=== PATIENT | female | born 1990 | race Caucasian/White ===

== ENCOUNTER 2020-08-05 19:52 | Emergency (ER) | payer SELFPAY ==
[2020-08-05 20:25] VITALS: BP 117/66; PULSE 106; RESP 16; TEMP 36.1; O2SAT 100
--- NOTE | 2020-08-05 20:50 | ED.ABDPAIN ---
HPI - Abdominal Pain General Chief Complaint: Abdominal Pain Stated Complaint: pain in abd Source: patient and RN notes reviewed Mode of arrival: ambulatory Limitations: no limitations History of Present Illness HPI narrative: patient is currently 6 weeks . She began having abdominal pain high up under her ribs approximately 10 days ago. Recently the pain has moved down into her lower abdomen. She is now having some vaginal bleeding. She delivered in [place]. She denies any chills she said she measured her temperature at 99.8? MD elicited complaint: abdominal pain Onset (ago): day(s) (10) Pain Consistency: intermittent Location: diffuse Severity: severe Quality: cramping and sharp Radiation: none Migration to: no migration Exacerbating factors: nothing Relieving factors: nothing Associated symptoms: nausea and diarrhea Related Data Patient : No Home Medications Medication Instructions Recorded Confirmed No Home Medications 08/05/20 08/05/20 Allergies Allergy/AdvReac Type Severity Reaction Status Date / Time No Known Allergies Allergy Unverified 02/29/16 14:14 Review of Systems Review of Systems: All systems reviewed & are unremarkable except as noted in HPI and below Constitutional: Constitutional: Denies chills and Denies fever(s) Eyes: Eyes: Reports no additional eye complaints ENT: Reports system reviewed and no additional complaints, except as documented Cardiovascular: Cardiovascular: Reports no additional cardiovascular complaints Respiratory: Respiratory: Reports no additional respiratory complaints Gastrointestinal: Gastrointestinal: Reports diarrhea and Reports nausea Genitourinary: Genitourinary: Reports abnormal vaginal bleeding Musculoskeletal: Musculoskeletal: Reports no additional musculoskeletal complaints Integumentary/Breasts: Skin/Breast: Reports system reviewed and no additional complaints, except as docu PMFSH Past Medical History Medical History (Updated 08/06/20 @ 00:00 by Christie Khalil) Migraine Surgical History Surgical History (Updated 08/05/20 @ 21:50 by Sotero Hinkle MD) No pertinent past surgical history Social History Social History (Updated 08/05/20 @ 21:50 by Sotero Hinkle MD) Smoking packs per day: 1 Smoking cigarettes per day: 20.0 Smoking status: Current every day smoker Tobacco type: cigarettes Alcohol intake: never Substance use: never Exam Const: General: healthy appearing and no acute distress Nutritional Appearance: well nourished and thin Orientation/consciousness: patient oriented x3 Other: female nurse in room during examination. HENMT: Head: normal to inspection Ears: external ears normal Face and sinus: normal facial exam Mouth: Yes moist mucous membranes Eyes: Conjunctivae: conjunctivae normal Pupils: Equal, round and reactive pupils present EOM: EOMs intact bilaterally Neck: Neck: normal visual inspection Resp: Effort & Inspection: normal respiratory effort Auscultation: clear to auscultation bilaterally Cardio: Rate: regular rate and tachycardic GI: Inspection: distended GI Palp: Yes Soft to palpation, Yes Tenderness to palpation present (GI) ( Left lower quadrant and suprapubic), Yes Guarding due to palpation present (GI), No Rigid due to palpation and No Rebound tenderness present Auscultation: normal bowel sounds : General: Yes no CVA tenderness Back/Spine/Pelvis: Cervical Spine: cervical ROM normal Thoracic/Lumbar Spine: thoraco-lumbar ROM normal Skin: General skin exam: normal color Rashes: no rashes Neuro: General: patient oriented x3, moves all extremities and no focal motor deficits Speech: normal speech Gait exam (Neuro): Normal gait present Extrem: General: normal to inspection and no clubbing, cyanosis or edema Psych: Appearance: grossly normal and well kempt Mental Status: mental status grossly normal Affect: normal affect Attitude: cooperative
[2020-08-05 21:44] LABS: Add Urine Microscopic? YES; Appearance Urine Clear (Clear); Basophils Absolute Auto 0.04 K/mm3 (0.00-0.10); Basophils Percent Auto 0.3 % (0.0-1.0); Bilirubin Urine 1+ (Negative); Blood Urine Negative (Negative); Color Urine Yellow (Yellow); Eosinophils Absolute Auto 0.13 K/mm3 (0.02-0.50); Glucose Urine UA Negative (Negative); Hematocrit 36.8 % (35.0-49.0); Hemoglobin 11.3 g/dL (12.0-15.0); Immature Granulocyte Absolute 0.08 K/mm3 (0.00-0.00); Immature Granulocyte Percent A 0.6 % (0.0-0.0); Ketones Urine Negative (Negative); Leukocyte Esterase Ur Negative LEU/UL (Negative); Lymphocytes Absolute Auto 1.82 K/mm3 (1.10-4.50); Lymphocytes Percent Auto 14.1 % (18.0-42.0); Mean Corpuscular HGB Conc 30.7 g/dL (32.0-36.0); Mean Corpuscular Hemoglobin 25.6 pg (27.0-31.0); Mean Corpuscular Volume 83.3 fL (78.0-102.0); Mean Platelet Volume 9.3 fl (9.2-11.8); Monocytes Absolute Auto 0.82 K/mm3 (0.10-0.90); Monocytes Percent Auto 6.4 % (2.0-11.0); Neutrophils Percent Auto 77.6 % (50.0-70.0); Nitrate Urine Negative (Negative); Platelet Count Result 448 K/mm3 (150-420); Protein Urine Trace (Negative); Red Blood Count 4.42 M/mm3 (4.20-5.40); Red Cell Distribution Width 16.7 % (11.6-14.4); Specific Grav Ur >= 1.030 (1.010-1.020); White Blood Count 12.9 K/mm3 (4.8-10.8); pH Urine 5.5 (5.0-8.0)
[2020-08-05 21:52] LABS: RBC Urine 0-2 /hpf (0-2)
[2020-08-05 21:53] LABS: Bacteria Urine 2+ /hpf; Calcium Oxalate Crystals Urine Present /hpf; Squamous Epithelial Cell Urine Few /hpf (Few)
[2020-08-05 22:03] LABS: Lactic Acid Reflex 0.6 mmol/L (0.4-2.0)
[2020-08-05 22:12] LABS: Alanine Aminotransferase 21 U/L (14-59); Albumin Level 2.6 g/dL (3.4-5.0); Alkaline Phosphatase 108 U/L (46-116); Anion Gap 9 mmol/L (8-16); Aspartate Amino Transferase < 10 U/L (15-37); Bilirubin,Total 0.1 mg/dL (0.00-1.00); Blood Urea Nitrogen 19 mg/dL (7-18); Calcium 8.5 mg/dL (8.5-10.1); Carbon Dioxide 29 mmol/L (21-32); Chloride 101 mmol/L (98-108); Estimated Glomerular Filt Rate > 60; Glucose 93 mg/dL (70-99); Lipase 41 U/L (73-393); Osmolality Calculated 290 mOsm/kg (285-295); Sodium 139 mmol/L (136-145); Total Protein 7.3 g/dL (6.4-8.2)
--- NOTE | 2020-08-05 22:31 | PC.NURSE ---
[facility] CALLED FOR POSSIBLE TRANSFER
[2020-08-05 23:20] VITALS: BP 114/72; PULSE 86; RESP 20; O2SAT 98
== END 2020-08-05 23:20 | disposition left against medical advice (07) ==
PROVIDERS: Emergency Provider Emergency Medicine
DX: R10.9 Unspecified abdominal pain (principal)
CPT/HCPCS: 36415; 80053; 81001; 83605; 83690; 85025; 99282; 99283

== ENCOUNTER 2020-08-06 14:09 | Emergency (ER) | payer MEDICAID, SELFPAY ==
--- NOTE | ~2020-08-06 | CT_ITS ---
EXAMINATION: CT abdomen pelvis w con DATE: 08/06/2020 19:04 INDICATION: Abdominal pain TECHNIQUE: Computed tomography (CT) of the abdomen and pelvis was performed with 100 cc Omnipaque 350 intravenous contrast. Automated exposure control and iterative reconstruction technique were employe d. Exam dose: 246.73 mGy-cm total exam DLP. COMPARISON: None. FINDINGS: There is mild dependent atelectasis at the lower lobes. Normal heart size. No pericardial or pleural effusion. The liver, spleen, gallbladder, bile ducts, pancreas, pancreatic duct, and adrenal glands are unremar kable. Indeterminate approximately 8 mm poorly marginated hypoenhancing lesion in the upper pole of the righ t kidney; consider MRI renal examination now or follow-up CT imaging in 6 months. No other renal spac e occupying mass lesion is detected. No urinary tract calculus or hydroureteronephrosis. The urinary bladder is unremarkable. Normal caliber of the abdominal aorta. Mild ascites, including mild fluid collection in the dependent pelvis, mild fluid collection in the r ight paracolic gutter and hepatorenal space. Normal appendix. Mild proximal small bowel dilatation and bowel wall thickening is noted. Findings ma y be consistent with nonspecific enteritis. No bowel obstruction or intraperitoneal free air is detec korina. Included skeletal structures are unremarkable. IMPRESSION: Nonspecific mild proximal small bowel dilatation and bowel wall thickening, suggesting e nteritis, possibly infectious or inflammatory. No abscess or free air. Normal appendix Mild ascites Indeterminate 8 mm poorly marginated hypoenhancing lesion in the upper pole right kidney; consider MR I renal examination now or follow-up CT imaging in 6 months. Reviewed, dictated and finalized at [facility]. Reviewed, dictated and finalized at [facility]. INTELLIGENCE TECHNICIAN IMPRESSION: Nonspecific mild proximal small bowel dilatation and bowel wall th ickening, suggesting enteritis, possibly infectious or inflammatory. No abscess or free air. Normal appendix Mild ascites Indeterminate 8 mm poorly marginated hypoenhancing lesion in the upper pole rig ht kidney; consider MRI renal examination now or follow-up CT imaging in 6 naveen hs.
--- NOTE | ~2020-08-06 | US_ITS ---
EXAMINATION: US pelvic complete DATE: 08/06/2020 16:57 INDICATION: 6 weeks abdominal pain. TECHNIQUE: Multiple transabdominal sonographic images of the pelvis were obtained. COMPARISON: None. FINDINGS: The uterus measures 7.9 x 4.8 x 6.9 cm. The endometrial complex measures 4 mm in thickness. The righ t ovary measures 3.6 x 2.4 x 3.4 cm with internal vascular flow on color Doppler. The left ovary is n ot visualized. There is a small amount of free fluid in the pelvis. Bladder is unremarkable. IMPRESSION: 1. Small amount of likely physiologic free fluid in the pelvis. Otherwise unremarkable pelvic ultraso und. Reviewed, dictated and finalized at [facility]. TRY BARN MANAGER IMPRESSION: 1. Small amount of likely physiologic free fluid in the pelvis. Otherwise unrem arkable pelvic ultrasound.
[2020-08-06 14:16] VITALS: BP 115/70; PULSE 96; RESP 18; TEMP 36.3; O2SAT 100
[2020-08-06 14:43] LABS: Alanine Aminotransferase 15 U/L (4-35); Albumin Level 3.8 g/dL (3.5-5.1); Alkaline Phosphatase 108 U/L (38-126); Anion Gap 8 mmol/L (8-16); Aspartate Amino Transferase 20 U/L (14-36); Bilirubin,Total 0.3 mg/dL (0.2-1.3); Blood Urea Nitrogen 17 mg/dL (7-17); Calcium 9.3 mg/dL (8.4-10.2); Carbon Dioxide 29 mmol/L (22-30); Chloride 102 mmol/L (98-107); Estimated CRCL calculation 87 ml/min; Estimated Glomerular Filt Rate > 60; Glucose 89 mg/dL (65-105); Lipase 23 U/L (23-300); Sodium 139 mmol/L (137-145)
[2020-08-06 14:44] LABS: Basophils Absolute Auto 0.1 K/mm3 (0.0-0.1); Basophils Percent Auto 0.5 % (0.2-1.2); Eosinophils Absolute Auto 0.2 K/mm3 (0-0.3); Eosinophils Percent Auto 1.5 % (0-4.4); Hematocrit 37.5 % (37.0-47.0); Hemoglobin 11.7 g/dL (12.0-15.0); Immature Granulocyte Absolute 0.09 K/mm3 (0.00-0.031); Immature Granulocyte Percent A 0.8 % (0-0.5); Lymphocytes Absolute Auto 2.16 K/mm3 (0.9-3.2); Lymphocytes Percent Auto 20.3 % (18.3-44.2); Mean Corpuscular HGB Conc 31.2 g/dl (32-36); Mean Corpuscular Hemoglobin 25.9 pg (26-34); Mean Platelet Volume 9.6 fl (7.4-10.4); Monocytes Absolute Auto 0.5 K/mm3 (0.1-0.6); Monocytes Percent Auto 4.5 % (2.6-8.5); Neutrophils Absolute Auto 7.7 K/mm3 (1.3-6.7); Neutrophils Percent Auto 72.4 % (45.5-73.1); Platelet Count Result 431 k/mm3 (150-375); Red Blood Count 4.52 M/mm3 (4.2-5.4); Red Cell Distribution Width 16.8 % (11.5-14.5); White Blood Count 10.6 K/mm3 (4.5-10.0)
--- NOTE | 2020-08-06 16:11 | ED.GENADULT ---
HPI - General Adult General Chief complaint: Abdominal Pain Stated complaint: bilateral rib pain, abd pain Time Seen by Provider: 08/06/20 16:05 Source: RN notes reviewed History of Present Illness HPI narrative: Patient presents to emergency department from home for abdominal pain. Patient states symptoms began 10 weeks ago. Pain is described as cramping and located in the bilateral lower abdomen as well as the right upper quadrant. Patient states pain does not radiate and is associated with nausea but denies any vomiting. Patient also states episodes of diarrhea today. Patient is 6 weeks post vaginal delivery. 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 She states she did have some vaginal bleeding that began approximately week ago and resolved yesterday denies any current vaginal bleeding or discharge states she did take Tylenol today for the pain with improvement denies any fevers or chills chest pain shortness of breath or any other symptoms Related Data Allergies Allergy/AdvReac Type Severity Reaction Status Date / Time No Known Allergies Allergy Verified 08/06/20 16:21 Review of Systems Review of Systems: Narrative: Gen.: Denies fevers or chills ENT: Denies congestion Respiratory: Denies shortness of breath or cough CV: Denies chest pain or palpitations GI: See HPI denies burning, urgency, frequency or hematuria Musculoskeletal: Denies back pain or muscle pain Neuro: Denies numbness, tingling, weakness or focal weakness Skin: Denies rash Except as documented, all other systems reviewed and negative [facility] Past Medical History Medical History Migraine Surgical History Surgical History (Updated 08/05/20 @ 21:50 by Sotero Hinkle MD) No pertinent past surgical history Social History Social History Smoking packs per day: 1 Smoking cigarettes per day: 20.0 Smoking status: Current every day smoker Tobacco type: cigarettes Alcohol intake: never Substance use: never Gender identity (if verbalized by the patient): Female Exam Narrative: Exam Narrative: APPEARANCE: No acute distress, nontoxic, resting in bed HEENT: Normocephalic, atraumatic, OMM RESPIRATORY: No respiratory distress, clear to auscultation bilaterally with no rhonchi wheezing or rales CARDIOVASCULAR: RRR s murmur ABDOMINAL: Soft, nondistended, turned palpation right lower quadrant left lower quadrant with mild tenderness in right upper quadrant, no tenderness left upper quadrant, no rebound or guarding MUSCULOSKELETAl: Moves all extremities. No clubbing, cyanosis or edema. NEURO: Awake and alert. Following commands, speech normal, no focal deficits SKIN:: Warm, dry. Normal Color PSYCHIATRIC: Normal affect/mood Course Course Emergency Course: Called discussed with Dr. Shanks presentation work-up. This time request patient started on Flagyl, follow-up as an outpatient Discussed with Dr. Estrella for [employer] presentation work-up agrees plan for discharge follow-up as an outpatient Patient states that they are feeling much better at this time. States abdominal pain has resolved. Repeat abdominal exam shows the patient's abdomen to be soft and nontender. Discussed with patient results of workup and diagnosis. Discussed need for follow-up with primary care physician, reasons to return to the emergency department in proper use of medication. Patient understands and agrees to current treatment plan Vital Signs Vital signs: Vital Signs Temperature 97.3 F L 08/06/20 14:16 Pulse Rate 96 08/06/20 14:16 Respiratory Rate 18 08/06/20 14:16 Blood Pressure 115/70 08/06/20 14:16 Pulse Oximetry 100 08/06/20 14:16 Temperature 97.3 F L 08/06/20 14:16 Pulse Rate 80 08/06/20 19:31 Respiratory Rate 20 08/06/20 19:31 Blood Pressure 104/58 L 08/06/20 19:31 Pulse Oximetry 100
[2020-08-06] MEDS: SODIUM CHLORIDE 0.9% IV 1,000 ML 999 ML IV CONT (18:00)
[2020-08-06] MEDS: KETOROLAC 30 MG/ML VIAL (*BKC) IV PUSH (18:01)
--- NOTE | 2020-08-06 18:52 | PC.NURSE ---
Pt in CT.
--- NOTE | 2020-08-06 19:15 | PC.NURSE ---
Pt asked multiple times to provide urine sample. Pt states she is unable to void at this time.
[2020-08-06 19:31] VITALS: BP 104/58; PULSE 80; RESP 20; O2SAT 100
[2020-08-06 19:52] LABS: Add Urine Microscopic? YES; Appearance Urine Clear (Clear); Bilirubin Urine Negative (Negative); Blood Urine Negative (Negative); Color Urine Yellow (Yellow); Glucose Urine UA Negative (Negative); Ketones Urine Negative (Negative); Leukocyte Esterase Ur Trace LEU/UL (NEGATIVE); Mucus Urine Heavy /lpf; Nitrate Urine Negative (Negative); Protein Urine 1+ mg/dL (Negative); Squamous Epithelial Cell Urine Many /hpf (Few); Urobilinogen Urine Negative mg/dL (<2.0); WBC Urine 16-20 /hpf (0-3)
[2020-08-06 19:55] LABS: Specific Grav Ur > 1.060 (1.001-1.035)
[2020-08-06 20:16] VITALS: BP 103/57; PULSE 87; RESP 16; O2SAT 100
[2020-08-06] MEDS: metroNIDAZOLE 250 MG TABLET 500 MG PO (20:16)
== END 2020-08-06 20:18 | disposition home or self-care (01) ==
PROVIDERS: Emergency Medicine; Emergency Provider Emergency Medicine; PCP Family Medicine
DX: K52.9 Noninfective gastroenteritis and colitis, unspecified (principal); N39.0 Urinary tract infection, site not specified; F17.210 Nicotine dependence, cigarettes, uncomplicated
CPT/HCPCS: 36415; 74177; 76856; 80053; 81001; 81025; 83690; 85025; 96361; 96374; 99284; A9270; J1885; J7030; Q9967

== ENCOUNTER 2021-01-07 12:22 | Observation (INO) | payer OTHER, SELFPAY ==
[2021-01-07] VITALS (9 sets, daily range): BP systolic 104–147; BP diastolic 66–89; PULSE 105–116; RESP 20–37; TEMP 36.6–37.5; O2SAT 96–100; BMI 24.5
--- NOTE | 2021-01-07 12:33 | ED.OVERDOSE ---
HPI - Overdose General Chief Complaint: Overdose Stated Complaint: ambulance Time Seen by Provider: 01/07/21 12:33 Source: patient Mode of arrival: EMS Limitations: no limitations History of Present Illness HPI Narrative: 30-year-old woman brought in today by EMS after she states she ingested approximately 3 g of methamphetamine at 11:30 a.m. today. She was stopped by the police prompting her to take medication. She states she last used methamphetamine yesterday. She complains of feeling shaky, having double vision, and feeling short of breath at present. she denies any other drug use, alcohol use except for her prescription medications which she cannot remember at this time. complaint: intentional overdose Onset (ago): hour(s) (1) Time: 11:30 Timing confirmed by: other (police) Intent: other Associated symptoms: shortness of breath Treatments Prior to Arrival: none Related Data Home Medications Medication Instructions Recorded Confirmed carisoprodol [Soma] 250 mg PO TID PRN 01/07/21 01/07/21 cyclobenzaprine [Flexeril] 10 mg PO TID PRN 01/07/21 01/07/21 sumatriptan succinate [Imitrex] 25 mg PO ONCE 01/07/21 01/07/21 Allergies Allergy/AdvReac Type Severity Reaction Status Date / Time No Known Allergies Allergy Verified 08/06/20 16:21 Review of Systems Review of Systems: All systems reviewed & are unremarkable except as noted in HPI and below Constitutional: Constitutional: Denies chills and Denies fever(s) Eyes: Eyes: Reports as per HPI, Reports change in vision and Denies photophobia ENT: Denies dysphagia, Denies nasal congestion and Denies sore throat Cardiovascular: Cardiovascular: Denies chest pain and Denies radiating jaw, neck or arm pain Respiratory: Respiratory: Reports as per HPI, Denies cough and Reports dyspnea Gastrointestinal: Gastrointestinal: Denies abdominal pain, Denies diarrhea, Denies nausea and Denies vomiting Genitourinary: Genitourinary: Denies hematuria, Denies nocturia and Denies dysuria Musculoskeletal: Musculoskeletal: Denies arthralgias and Denies joint swelling Integumentary/Breasts: Skin/Breast: Denies pruritus, Denies erythema and Denies rash Neurologic: Denies focal weakness, Denies numbness and Denies weakness PMFSH Past Medical History Medical History Migraine Surgical History Surgical History No pertinent past surgical history Social History Social History Smoking packs per day: 1 Smoking cigarettes per day: 20.0 Smoking status: Current every day smoker Tobacco type: cigarettes Alcohol intake: never Substance use: never Gender identity (if verbalized by the patient): Female Exam Const: General: healthy appearing and alert Limitations: behavioral limitations ( reticent, whispering) Other: Mildly anxious HENMT: Head: normal to inspection Ears: external ears normal and TM's normal bilaterally General nose exam: Normal nares present Face and sinus: normal facial exam Mouth: Yes moist mucous membranes Throat: posterior oropharynx normal Eyes: Conjunctivae: conjunctivae normal EOM: EOMs intact bilaterally Neck: Neck: normal visual inspection Resp: Effort & Inspection: normal respiratory effort and not labored Auscultation: clear to auscultation bilaterally, no rales, no rhonchi and no wheezes Cardio: Rate: tachycardic Rhythm: regular rhythm Heart sounds: no murmurs GI: GI Palp: Yes Soft to palpation and No Tenderness to palpation present (GI) Skin: General skin exam: normal color, no jaundice and no pallor Rashes: no rashes Neuro: General: patient oriented x3, moves all extremities, no focal motor deficits and CN's II-XI intact bilaterally Speech: normal speech Gait exam (Neuro): Normal gait present Motor exam (neuro): 5/5 motor strength present throughout Extrem:
--- NOTE | 2021-01-07 12:40 | PC.NURSE ---
POISON CONTROL CALLED FOR ADVICE - WATCH FOR SEIZURES, PSYCHOSIS, AGITATION, AND CARDIAC ARRHYTHMIA'S. GIVE BENZODIAZEPINES PRN. WATCH FOR SPIKE IN TEMPERATURE - SPOKE WITH HARSHIL
[2021-01-07 12:58] LABS: Basophils Absolute Auto 0.07 K/mm3 (0.00-0.10); Basophils Percent Auto 0.8 % (0.0-1.0); Eosinophils Absolute Auto 0.04 K/mm3 (0.02-0.50); Eosinophils Percent Auto 0.5 % (1.0-6.0); Hematocrit 36.4 % (35.0-49.0); Hemoglobin 11.9 g/dL (12.0-15.0); Immature Granulocyte Absolute 0.03 K/mm3 (0.00-0.00); Immature Granulocyte Percent A 0.4 % (0.0-0.0); Lymphocytes Absolute Auto 2.39 K/mm3 (1.10-4.50); Lymphocytes Percent Auto 28.2 % (18.0-42.0); Mean Corpuscular HGB Conc 32.7 g/dL (32.0-36.0); Mean Corpuscular Hemoglobin 27.3 pg (27.0-31.0); Mean Corpuscular Volume 83.5 fL (78.0-102.0); Mean Platelet Volume 10.1 fl (9.2-11.8); Monocytes Absolute Auto 0.54 K/mm3 (0.10-0.90); Monocytes Percent Auto 6.4 % (2.0-11.0); Neutrophils Absolute Auto 5.4 K/mm3 (1.7-7.2); Neutrophils Percent Auto 63.7 % (50.0-70.0); Platelet Count Result 315 K/mm3 (150-420); Red Blood Count 4.36 M/mm3 (4.20-5.40); Red Cell Distribution Width 14.1 % (11.6-14.4); White Blood Count 8.5 K/mm3 (4.8-10.8)
--- NOTE | 2021-01-07 13:00 | PC.NURSE ---
[facility] STATES THIS PATIENT IS RELEASED FROM THEIR CUSTODY - PT RESPONDS TO THEIR NEWS BY SAYING SHE KNOWS THAT SHE CAN LEAVE AND GO HOME. PT UPDATED TO THE FACT THAT IF SHE LEAVES WITH IV IN HER ARM, THE POLICE WILL BE CALLED.
--- NOTE | 2021-01-07 13:04 | ECG_ITS ---
Measurements Intervals [place] Rate: 119 P: 72 TN: 162 QRS: 70 QRSD: 97 T: 65 QT: 303 QTc: 427 Interpretive Statements SINUS TACHYCARDIA BASELINE ARTIFACT- I, II, III, AVR, AVL, AVF, V1-V6 ABNORMAL ECG Electronically Signed On 01-07-2021 13:35:35 CDT by Jason Palma D.O.
[2021-01-07] MEDS: SODIUM CHLORIDE 0.9% IV 1,000 ML 999 ML IV CONT ×2 (13:07→13:52)
[2021-01-07 13:12] LABS: Alanine Aminotransferase 20 U/L (14-59); Alkaline Phosphatase 70 U/L (46-116); Anion Gap 9 mmol/L (8-16); Aspartate Amino Transferase 11 U/L (15-37); Bilirubin,Total 0.4 mg/dL (0.00-1.00); Blood Urea Nitrogen 18 mg/dL (7-18); Calcium 8.9 mg/dL (8.5-10.1); Carbon Dioxide 25 mmol/L (21-32); Chloride 103 mmol/L (98-108); Creatine Kinase 71 U/L (26-192); Estimated Glomerular Filt Rate > 60; Glucose 108 mg/dL (70-99); Magnesium 1.9 mg/dL (1.8-2.4); Osmolality Calculated 286 mOsm/kg (285-295); Partial Thromboplastin Time 21.6 SEC (23.90-30.70); Potassium 3.7 mmol/L (3.5-5.1); Prothrombin Time 10.9 Seconds (9.50-12.10); Salicylate 2.5 mg/dL (2.8-20.0); Sodium 137 mmol/L (136-145); Total Protein 7.8 g/dL (6.4-8.2)
[2021-01-07 13:14] LABS: Acetaminophen < 2 ug/mL (10-30); Ethanol < 3 mg/dL (0-6)
[2021-01-07 13:18] LABS: Lactic Acid Reflex 1.1 mmol/L (0.4-2.0)
[2021-01-07] MEDS: DEXTROSE 5%/0.9% SOD CHL 1,000 ML 150 ML (14:45)
[2021-01-07 14:58] LABS: Glucose Point of Care 80 (65-105)
[2021-01-07 14:58] LABS: Glucose Point of Care 64 (65-105)
[2021-01-07 15:40] LABS: Add Urine Microscopic? YES; Appearance Urine Clear (Clear); Bilirubin Urine Negative (Negative); Blood Urine Negative (Negative); Color Urine Yellow (Yellow); Glucose Urine UA Negative (Negative); Ketones Urine Negative (Negative); Leukocyte Esterase Ur Trace LEU/UL (Negative); Nitrate Urine Negative (Negative); Protein Urine Negative (Negative); Specific Grav Ur >= 1.030 (1.010-1.020); Urobilinogen Urine 0.2 mg/dL (0.2-1.0)
--- NOTE | 2021-01-07 15:43 | PC.NURSE ---
PATIENT FINALLY AGREED TO PROVIDE URINE SAMPLE. PT IS ASSISTED UP. PT STATES THAT SHE FEELS BAD BUT NOT BAD ENOUGH TO BE ADMITTED OR TRANSFERRED. PT HAS FLUSHED SKIN AND IS ILL APPEARING COMPARED TO FIRST ARRIVAL.
[2021-01-07 15:46] LABS: Bacteria Urine Trace /hpf; Mucus Urine Few /lpf; RBC Urine 0-2 /hpf (0-2); Squamous Epithelial Cell Urine Few /hpf (Few)
[2021-01-07 15:47] LABS: Pregnancy On Board Control Positive; Urine Pregnancy Test Negative
[2021-01-07 15:49] LABS: Amphetamine Screen Urine Positive (Negative); Barbiturate Screen Urine Negative (Negative); Benzodiazepines Screen Urine Positive (Negative); Cannabinoid Screen Urine Negative (Negative); Cocaine Screen Urine Negative (Negative); Methadone Screen Urine Negative (Negative); Opiate Screen Urine Negative (Negative); Phencyclidine Screen Urine Negative (Negative)
[2021-01-07] MEDS: LORazepam INJ (*CRX) 2 MG/ML VIAL 0.5 MG IV PUSH (16:22)
--- NOTE | 2021-01-07 16:55 | PC.NURSE ---
STILL AWAITING CALL BACK FROM [facility] - FIRST CALL PLACED AT 1605 TO GANESH
--- NOTE | 2021-01-07 17:02 | PC.NURSE ---
PT REPORTS FEELING BETTER, RESPIRATIONS DOWN FROM PREVIOUS
--- NOTE | 2021-01-07 17:15 | PC.NURSE ---
SECOND CALL PLACED TO [facility]
--- NOTE | 2021-01-07 17:36 | PC.NURSE ---
[facility] CALLS BACK AND PATIENT TO BE ADMITTED HERE FOR OBSERVATION
[2021-01-07 18:31] LABS: Alanine Aminotransferase 21 U/L (14-59); Albumin Level 3.9 g/dL (3.4-5.0); Alkaline Phosphatase 73 U/L (46-116); Anion Gap 8 mmol/L (8-16); Aspartate Amino Transferase 12 U/L (15-37); Bilirubin,Total 0.5 mg/dL (0.00-1.00); Blood Urea Nitrogen 14 mg/dL (7-18); Calcium 8.5 mg/dL (8.5-10.1); Carbon Dioxide 25 mmol/L (21-32); Chloride 105 mmol/L (98-108); Estimated CRCL calculation 83 ml/min; Estimated Glomerular Filt Rate > 60; Glucose 100 mg/dL (70-99); Osmolality Calculated 286 mOsm/kg (285-295); Potassium 4.3 mmol/L (3.5-5.1); Sodium 138 mmol/L (136-145); Total Protein 7.7 g/dL (6.4-8.2); Troponin I < 4.0 ng/L (0.00-60.4)
[2021-01-07 18:34] LABS: Glucose Point of Care 97 (65-105)
--- NOTE | 2021-01-07 20:39 | PC.NURSE ---
Blood glucose checked and 91. A/O x3. Slight tremors noted and reaching for items in the air. Responsive to touch and voice. Continues with clear liquids. Monitoring.
[2021-01-07 20:40] LABS: Glucose Point of Care 91 (65-105)
--- NOTE | 2021-01-07 22:03 | PC.NURSE ---
Poison control from [place] called to follow up with patients condition. Stable at this time. Stated will call and speak with day nurse in the morning for condition update.
[2021-01-07 22:09] LABS: Glucose Point of Care 107 (65-105)
[2021-01-07 23:53] LABS: Glucose Point of Care 117 (65-105)
[2021-01-08] VITALS: BP 141/97; PULSE 90; RESP 18; TEMP 36.9; O2SAT 100
[2021-01-08 02:25] LABS: Glucose Point of Care 116 (65-105)
[2021-01-08] MEDS: DEXTROSE 5%/0.9% SOD CHL 1,000 ML 150 ML IV CONT (02:25)
[2021-01-08 02:31] LABS: Creatine Kinase 346 U/L (26-192); Troponin I 4.9 ng/L (0.00-60.4)
[2021-01-08 02:33] LABS: Thyroid Stimulating Hormone Reflex 1.46 u/IU/mL (0.36-3.74)
[2021-01-08 02:55] LABS: Lactic Acid Reflex 0.7 mmol/L (0.4-2.0)
[2021-01-08 02:56] LABS: Anion Gap 9 mmol/L (8-16); Blood Urea Nitrogen 8 mg/dL (7-18); Carbon Dioxide 23 mmol/L (21-32); Chloride 106 mmol/L (98-108); Estimated CRCL calculation 96 ml/min; Estimated Glomerular Filt Rate > 60; Glucose 118 mg/dL (70-99); Osmolality Calculated 285 mOsm/kg (285-295); Potassium 3.5 mmol/L (3.5-5.1); Sodium 138 mmol/L (136-145)
[2021-01-08 02:57] LABS: Alanine Aminotransferase 18 U/L (14-59); Albumin Level 3.2 g/dL (3.4-5.0); Alkaline Phosphatase 59 U/L (46-116); Aspartate Amino Transferase 16 U/L (15-37); Bilirubin,Total 0.5 mg/dL (0.00-1.00); Calcium 8.2 mg/dL (8.5-10.1); Total Protein 6.3 g/dL (6.4-8.2)
[2021-01-08 04:00] VITALS: BP 127/78; PULSE 75; RESP 18; TEMP 36.9; O2SAT 92
[2021-01-08 04:22] LABS: Glucose Point of Care 115 (65-105)
--- NOTE | 2021-01-08 04:41 | PC.NURSE ---
Continue to monitor patient. No further tremors noted. Resting at this time.
[2021-01-08 05:55] LABS: Basophils Absolute Auto 0.04 K/mm3 (0.00-0.10); Basophils Percent Auto 0.4 % (0.0-1.0); Eosinophils Absolute Auto 0.04 K/mm3 (0.02-0.50); Eosinophils Percent Auto 0.4 % (1.0-6.0); Hemoglobin 10.7 g/dL (12.0-15.0); Immature Granulocyte Absolute 0.03 K/mm3 (0.00-0.00); Immature Granulocyte Percent A 0.3 % (0.0-0.0); Lymphocytes Absolute Auto 2.24 K/mm3 (1.10-4.50); Lymphocytes Percent Auto 22.9 % (18.0-42.0); Mean Corpuscular HGB Conc 32.4 g/dL (32.0-36.0); Mean Corpuscular Hemoglobin 27.6 pg (27.0-31.0); Mean Corpuscular Volume 85.1 fL (78.0-102.0); Mean Platelet Volume 10.1 fl (9.2-11.8); Monocytes Absolute Auto 0.78 K/mm3 (0.10-0.90); Neutrophils Absolute Auto 6.7 K/mm3 (1.7-7.2); Platelet Count Result 279 K/mm3 (150-420); Red Blood Count 3.88 M/mm3 (4.20-5.40); Red Cell Distribution Width 14.5 % (11.6-14.4); White Blood Count 9.8 K/mm3 (4.8-10.8)
[2021-01-08 06:15] LABS: Anion Gap 8 mmol/L (8-16); Carbon Dioxide 25 mmol/L (21-32); Chloride 106 mmol/L (98-108); Potassium 3.5 mmol/L (3.5-5.1); Sodium 139 mmol/L (136-145)
[2021-01-08 06:16] LABS: Alanine Aminotransferase 19 U/L (14-59); Albumin Level 3.2 g/dL (3.4-5.0); Alkaline Phosphatase 62 U/L (46-116); Aspartate Amino Transferase 17 U/L (15-37); Bilirubin,Total 0.6 mg/dL (0.00-1.00); Blood Urea Nitrogen 7 mg/dL (7-18); Calcium 8.1 mg/dL (8.5-10.1); Estimated CRCL calculation 89 ml/min; Estimated Glomerular Filt Rate > 60; Glucose 118 mg/dL (70-99); Osmolality Calculated 287 mOsm/kg (285-295); Total Protein 6.4 g/dL (6.4-8.2)
[2021-01-08 06:17] LABS: Creatine Kinase 314 U/L (26-192)
--- NOTE | 2021-01-08 06:20 | PC.NURSE ---
Resting well at this time. No side effects noted. A/O x4. Continues with IV fluids and monitoring blood glucose.
[2021-01-08 06:24] LABS: Lactic Acid Reflex 0.8 mmol/L (0.4-2.0)
[2021-01-08 06:28] LABS: Troponin I 5.7 ng/L (0.00-60.4)
[2021-01-08 06:30] LABS: Glucose Point of Care 122 (65-105)
[2021-01-08 07:39] LABS: Glucose Point of Care 125 (65-105)
[2021-01-08 07:40] VITALS: BP 119/67; PULSE 83; RESP 16; TEMP 37.1; O2SAT 100
[2021-01-08 08:00] VITALS: PULSE 75
--- NOTE | 2021-01-08 09:08 | PM.SD2 ---
Same Day Admit/Disch: HPI History of Present Illness Chief complaint: methamphetamine overdose Narrative: Mee Townsend is a 30 year old female who was admitted under observation for self admitting she swallowed about 3 grams of Methamphetamine after being pulled over by police during a traffic stop. Pt asked how long she had been in the hospital stating she though she has been here for about 3 days. I informed her she was admitted last night. This morning Pt denies any CP, SOB, increased WOB, ARIAS, abdominal pains, musculoskeletal pains, neurologic deficiencies (other than short term memory loss as noted above). Pt states she does not have a PCP and stated she is on 3 different medications. [facility] Past Medical History Medical History Migraine Surgical History Surgical History No pertinent past surgical history Social History Social History Smoking packs per day: 1 Smoking cigarettes per day: 20.0 Smoking status: Unknown if ever smoked Tobacco type: cigarettes Second hand tobacco smoke exposure: Yes Alcohol intake: unknown Substance use: current Substance use type: methamphetamine Gender identity (if verbalized by the patient): Female Spiritual care concerns: No Same Day Admit/Disch: Med Pre-admit Medications Home Medications Medication Instructions Recorded Confirmed Type carisoprodol [Soma] 250 mg PO TID PRN 01/07/21 01/07/21 History cyclobenzaprine [Flexeril] 10 mg PO TID PRN 01/07/21 01/07/21 History sumatriptan succinate [Imitrex] 25 mg PO ONCE 01/07/21 01/07/21 History Exam Const: General: cooperative, comfortable, no acute distress, alert and awake Nutritional Appearance: average body habitus HENMT: Head: normal to inspection, normocephalic and atraumatic Ears: hearing grossly normal bilaterally Eyes: General: appearance normal, both eyes and all related structures Eyelids: eyelids normal Conjunctivae: conjunctivae normal Sclera: sclerae normal Neck: Neck: normal visual inspection and no JVD Resp: Effort & Inspection: normal respiratory effort Auscultation: clear to auscultation bilaterally Cardio: Rate: regular rate Heart sounds: S1 normal heart sound present and S2 normal heart sound present Skin: General skin exam: normal color Lesions: no lesions Neuro: General: oriented to person, oriented to place and No oriented to time (Pt though she was in the hospital for 3 days) Cranial nerves: Yes CN's II-XII intact bilaterally Extrem: General: no pedal edema Psych: Appearance: grossly normal Mental Status: mental status grossly normal Speech and movement: Normal speech and movement present Affect: normal affect Attitude: cooperative DS: Data Data Completed and Pending Labs on day of discharge: Labs from last 24 hours 01/08/21 01/08/21 01/08/21 07:36 06:17 05:48 WBC RBC Hgb Hct MCV MCH MCHC RDW Plt Count MPV Immature Gran % (Auto) Neut % (Auto) Lymph % (Auto) [place] % (Auto) Eos % (Auto) Baso % (Auto) Lymph # (Auto) [place] # (Auto) Eos # (Auto) Baso # (Auto) Abs Immat Gran (auto) Absolute Neuts (auto) Absolute Nucleated RBC Nucleated RBC % PT INR APTT Sodium Potassium Chloride Carbon Dioxide Anion Gap BUN Creatinine Estim Creat Clear Calc Estimated GFR Glucose POC Capillary Glucose 125 122 Calculated Osmolality Lactic Acid 0.8 Calcium Phosphorus Magnesium Total Bilirubin AST ALT Alkaline Phosphatase Total Creatine Kinase Troponin I Total Protein Albumin TSH (Reflex) Urine Color Urine Appearance Urine pH Ur Specific [place] Urine Protein Urine Glucose (UA) Urine Ketones Ur Blood (Man) Uri
--- NOTE | 2021-01-08 10:35 | PC.NURSE ---
Pt discharged to home. A/O x3 , steady ambulation. RN instructed pt regarding discharge instructions. Pt verbalized understanding. RN walked pt to the main hospital entrance.
--- NOTE | 2021-01-08 10:40 | PC.NURSE ---
Evangelist from poison control called back to follow up on pt. The pt is stable at this point and being discharged to home.
--- NOTE | 2021-01-09 15:12 | PCDIET ---
Invalid phone number for discharge call back.
== END 2021-01-08 10:25 | disposition home or self-care (01) ==
LOC: CHSED 12:34 → CHS2ND 17:40
PROVIDERS: Admitting Provider Emergency Medicine; Emergency Provider Emergency Medicine; Visit Provider Emergency Medicine
DX: T43.622A Poisoning by amphetamines, intentional self-harm, initial encounter (principal); D64.9 Anemia, unspecified; F15.929 Other stimulant use, unspecified with intoxication, unspecified; F17.210 Nicotine dependence, cigarettes, uncomplicated; G43.909 Migraine, unspecified, not intractable, without status migrainosus
CPT/HCPCS: 36415; 80053; 80307; 81001; 81025; 82550; 82948; 83605; 83735; 84100; 84443; 84484; 85025; 85610; 85730; 87040; 87077; 87086; 87088; 93005; 96360; 96361; 96374; 99285; G0378; G0379; J2060; J7030; J7042

== ENCOUNTER 2024-01-15 22:03 | Emergency (ER) | payer OTHER, SELFPAY ==
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
--- NOTE | ~2024-01-15 | XR_ITS ---
EXAMINATION: XR chest 2V 01/15/2024 22:36 INDICATION: Cough, wheezing and chest tightness PROCEDURE: 2 view chest COMPARISON: No prior studies for comparison. FINDINGS: The lungs are clear. The cardiomediastinal silhouette is within normal limits. There are no pleural effusions. There is no pneumothorax suspected. IMPRESSION: 1: NO ACUTE CARDIOPULMONARY DISEASE. Reviewed, dictated and finalized at location A.
[2024-01-15 22:06] VITALS: BP 127/89; PULSE 90; RESP 20; TEMP 36.9; O2SAT 100
--- NOTE | 2024-01-15 22:16 | PC.NURSE ---
Per Kimberly, [facility], may obtain initial CXR but anticipates negative results based on clinical presentation. Repeat CXR at 6 hours from time of ingestion, around 0330 hours, and treat for pneumonitis if symptoms present with abx and bronchodilators. If appropriate for discharge give return precautions for pneumonitis. Dr. Dillard made aware of recommendations.
--- NOTE | 2024-01-15 22:26 | ECG_ITS ---
SEE SCANNED COPY FOR CONFIRMED REPORT MTDD
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
[2024-01-15 23:22] VITALS: BP 122/82; PULSE 72; RESP 16; TEMP 36.7; O2SAT 100
--- NOTE | 2024-01-15 23:23 | PC.NURSE ---
Pt resting comfortably in recumbent position. No distress noted. Pt reports improved tightness in chest and is able to lay in nearly supine position with no distress or increased work of breathing noted.
[2024-01-16 01:57] VITALS: BP 119/78; PULSE 84; RESP 20; O2SAT 100
[2024-01-16 02:15] VITALS: BP 115/69; PULSE 84; RESP 20; O2SAT 98
[2024-01-16 03:00] VITALS: BP 113/76; PULSE 88; RESP 16; O2SAT 96
--- NOTE | 2024-01-16 03:10 | PC.NURSE ---
Pt ambulatory with steady gait to and from restroom. Pt states feels much better.
[2024-01-16 03:59] VITALS: TEMP 36.7
== END 2024-01-16 03:50 | disposition home or self-care (01) ==
PROVIDERS: Emergency Provider Emergency Medicine; PCP Emergency Medicine
DX: T59.891A Toxic effect of other specified gases, fumes and vapors, accidental (unintentional), initial encounter (principal); F15.90 Other stimulant use, unspecified, uncomplicated; X58.XXXA Exposure to other specified factors, initial encounter
CPT/HCPCS: 71046; 93005; 99283

== ENCOUNTER 2025-04-02 13:25 | Emergency (ER) | payer OTHER, MEDICAID, SELFPAY ==
[2025-04-02 13:25] VITALS: BP 122/79; PULSE 119; RESP 18; TEMP 36.8; O2SAT 97
--- OUTSIDE RECORDS SUMMARY | 2025-04-02 13:33 | XMS_ITS | Continuity of Care Document ---
Author Organization [facility] Address [address] [place] [address] [place] [address] Phone Care Team Providers Care Hadoop Consultant Name Role Phone Moshe Rivera MD Unavailable Unavailable Allergies, Adverse Reactions, Alerts Substance Reaction Status Criticality No Known Allergies Active No Inform ation Medications Medication Instructions Dosage Effective Dates (start - stop) Status Comments Lexapro 10 mg tablet take 1 tablet by oral route every day 10 MG - Active Imitrex 50 mg tablet take 1 tablet by oral route as needed 50 MG - Active take one at onset of headache, may repeat x one in two hours, max 2/24 hours [place] 7.5 mg-325 mg tablet take 1 tablet by oral route 2 times every day as needed for pain 1 tablet - Active avoid driving or operaet machines, Topamax 50 mg tablet take 1 tablet by oral route 2 times every day 50 MG - Active Xanax 1 mg tablet take 1 tablet (1MG) by oral route 2 times every day as needed 1 MG - Active avoid driving or operate machines Zyprexa 5 mg tablet take 1 tablet by oral route every day 5 MG - Active cyclobenzaprine 10 mg tablet take 1 tablet by oral route 2 times every day as needed 10 MG - Active avoid driving or operate machines Procedures Procedure Date OFFICE/OUTPATIENT VISIT, EST OFFICE/OUTPATIENT VISIT, EST OFFICE/OUTPATIENT VISIT, EST OFFICE/OUTPATIENT VISIT, EST OFFICE/OUTPATIENT VISIT, EST OFFICE/OUTPATIENT VISIT, EST OFFICE/OUTPATIENT VISIT, EST PREV VISIT, EST, AGE 18-39 OFFICE/OUTPATIENT VISIT, EST OFFICE/OUTPATIENT VISIT, EST OFFICE/OUTPATIENT VISIT, EST OFFICE/OUTPATIENT VISIT, EST OFFICE/OUTPATIENT VISIT, EST PREV VISIT, EST, AGE 18-39 OFFICE/OUTPATIENT VISIT, EST OFFICE/OUTPATIENT VISIT, EST OFFICE/OUTPATIENT VISIT, EST OFFICE/OUTPATIENT VISIT, EST OFFICE/OUTPATIENT VISIT, EST OFFICE/OUTPATIENT VISIT, EST OFFICE/OUTPATIENT VISIT, EST OFFICE/OUTPATIENT VISIT, EST OFFICE/OUTPATIENT VISIT, EST PREV VISIT, NEW, AGE 18-39 Advance Directives Directive Yes / No Effective Date File Name No Information Encounters Encounter Description Practice Location Reason(s) For Visit Diagnoses Date Provider Providers Copied on Encounter [facility], [address], [address], tel:[phone] [facility] No Information 3-201 7 Miguel Mesa. [address] [place], [address] , [place]. tel:[phone] OFFICE/OUTPA TIENT VISIT, [facility], [address], [address], [place] tel:[phone] [facility] headache1 (chief complaint) weight loss1 (chief complaint) back pain1 (chief complaint) anxiety1 (chief complaint) Generalized anxiety disorderAbnormal weight lossLow back painHeadache May- 0-201 7 Miguel Mesa. [address], [address] [place], [address] , [place]. tel:[phone] Referring Provider: Moshe Rivera [address], [place], [place], [address]. tel:[phone] OFFICE/OUTPA TIENT VISIT, [facility], [address], [place], [place], [address], [place] tel:[phone] [facility] back pain1 (chief complaint) headache1 (chief complaint) anxiety1 (chief complaint) underweigh t1 (chief complaint) ankle pain1 (chief complaint) HeadacheGeneralized anxiety disorderOsteochondr itis dissecans, unsp ankle and joints of footAbnormal weight loss 7 Miguel Mesa. [address], [place], [place], [address] , [place]. [phone] Referring Provider: Subha Ramirez [address], [place], [place], [address]. tel:[phone] OFFICE/OUTPA TIENT VISIT, [facility], [address], [place], [place], [address], [place] tel:[phone] [facility] Weight loss1 (chief complaint) anxiety1 (chief complaint) headache1 (chief complaint) back pain1 (chief complaint) ankle pain1 (chief complaint) Abnormal weight lossLumbagoGenerali zed anxiety disorderHeadache 7 Miguel Mesa. [address], [place], [place], [address] , [place]. [phone] Referring Provider: Subha [address], [place], [place], [address]. tel:[phone] OFFICE/OUTPA TIENT VISIT, [facility], [address], [place], [place], [address], [place] tel:[phone] [facility] anxiety1 (chief complaint) headache1 (chief complaint) back pain1 (chief complaint) tobacco1 (chief complaint) LumbagoHeadacheGene ralized anxiety disorderTobacco use 7 Miguel Mesa. [address], [place], [place], [address] , [place]. [phone] Referring Provider: Subha Ramirez [address], [place], [place], [address]. tel:[phone] OFFICE/OUTPA TIENT VISIT, [facility], [address], [place], [place], [address], [place] tel:[phone] [facility] headache1 (chief complaint) back pain1 (chief complaint) anxiety1 (chief complaint) weight loss1 (chief complaint) HeadacheLow back painGeneralized anxiety disorderAbnormal weight loss Dec- 7 Miguel Mesa. [address], [place], [address] , [place]. tel:[phone] OFFICE/OUTPA TIENT VISIT, [facility], [address], [place], [address], [place] tel:[phone] [facility] headache1 (chief complaint) sick (chief complaint) back pain1 (chief complaint) anxiety1 (chief complaint) HeadacheLow back painGeneralized anxiety disorderAcute upper respiratory infection, unspecified 7 Miguel Mesa. [address], [place], [address] , [place]. tel:[phone] Referring Provider: Subha Ramirez [address], [place], [place], [address]. tel:[phone] OFFICE/OUTPA TIENT VISIT, [facility], [address], [place], [address], [place] tel:[phone] [facility] headache1 (chief complaint) anxiety1 (chief complaint) back apin1 (chief complaint) HeadacheLow back painGeneralized anxiety disorder 6 Migeul Mesa. [address], [place], [address] , [place]. tel:[phone] Referring Provider: Subha [address], [place], [address]. tel:[phone] PREV VISIT, EST, AGE 18-39 [facility], [address], [place], [address], [place] tel:[phone] [facility] Physical (chief complaint) Encntr for general adult medical exam w/o abnormal findings 6 Miguel Mesa. [address], [place], [address] , [place]. tel:[phone] Referring Provider: Subha Ramirez [address], [place], [place], [address]. tel:[phone] OFFICE/OUTPA TIENT VISIT, [facility], [address], [place], [place], [address], [place] tel:[phone] [facility] back pain1 (chief complaint) anxiety1 (chief complaint) headache1 (chief complaint) tobacco1 (chief complaint) toe numnbess (chief complaint) HeadacheLow back painTobacco useGeneralized anxiety disorder 6 Miguel Mesa. [address], [place], [address] , [place]. [phone] Referring Provider: Subha Ramirez [address], [place], [address]. tel:[phone] OFFICE/OUTPA TIENT VISIT, [facility], [address], [place], [address], [place] tel:[phone] [facility] headache1 (chief complaint) back pain1 (chief complaint) anxiety1 (chief complaint) tobacco1 (chief complaint) Abnormal weight lossHeadacheLow back painTobacco use 6 Miguel Mesa. [address], [place], [address] , [place]. tel:[phone] Referring Provider: Subha Ramirez [address], [place], [address]. tel:[phone] OFFICE/OUTPA TIENT VISIT, [facility], [address], [place], [address], [place] tel:[phone] [facility] back pian1 (chief complaint) headache1 (chief complaint) anxiety1 (chief complaint) HeadacheLow back painVitamin D deficiency, unspecifiedGenerali zed anxiety disorder 6 Miguel Mesa. [address], [place], [place], [address] , [place]. tel:[phone] Referring Provider: Subha Ramirez [address], [place], [address]. tel:[phone] OFFICE/OUTPA TIENT VISIT, EST [facility], [address], [place], [place], [address], [place] tel:[phone] [facility] headache1 (chief complaint) back pain1 (chief complaint) anxiety1 (chief complaint) weight loss1 (chief complaint) Abnormal weight lossChronic migraine w/o aura, not intractable, w/o status migrainosusOther spondylosis, lumbar regionGeneralized anxiety disorder 5 Miguel Mesa. [address], [place], [address] , [place]. [phone] Referring Provider: Subha Ramirez [address], [place], [place], [address]. tel:[phone] OFFICE/OUTPA TIENT VISIT, EST [facility], [address], [place], [place], [address], [place] tel:[phone] [facility] anxiety (chief complaint) LBP (chief complaint) headache (chief complaint) LumbagoGeneralized anxiety disorderHeadache 5 Miguel Mesa. [address], [place], [address] , [place]. [phone] Referring Provider: Subha Ramirez [address], [place], [address]. tel:[phone] PREV VISIT, EST, AGE 18-39 [facility], [address], [place], [place], [address], [place] tel:[phone] [facility] PHysical (chief complaint) ROUTINE MEDICAL EXAM 5 Miguel Mesa. [address], [place], [place], [address] , [place]. [phone] Referring Provider: Subha Ramirez [address], [place], [address]. tel:[phone] OFFICE/OUTPA TIENT VISIT, [facility], [address], [place], [address], [place] tel:[phone] [facility] chronic pain (chief complaint) headcashe (chief complaint) anxiety (chief complaint) LumbagoGeneralized anxiety disorderHeadacheClo sed fibular shaft fx 5 Miguel Mesa. [address], [place], [address] , [place]. tel:[phone] Referring Provider: Subha Ramirez [address], [place], [address]. tel:[phone] OFFICE/OUTPA TIENT VISIT, [facility], [address], [place], [address], [place] tel:[phone] [facility] fibular fx (chief complaint) back pain (chief complaint) anxiety (chief complaint) headache (chief complaint) LumbagoClosed fibular shaft fxGeneralized anxiety disorderHeadache 5 Miguel Mesa. [address], [place], [place], [address] , [place]. tel:[phone] Referring Provider: Subha Ramirez [address], [place], [address]. tel:[phone] OFFICE/OUTPA TIENT VISIT, [facility], [address], [place], [address], [place] tel:[phone] [facility] back pain (chief complaint) headache (chief complaint) anxiety (chief complaint) Dietary surveillance and counselingGeneraliz ed anxiety disorderHeadacheLum bago 5 Miguel Mesa. [address], [place], [address] , [place]. tel:[phone] Referring Provider: Subha Ramirez [address], [place], [address]. tel:[phone] OFFICE/OUTPA TIENT VISIT, [facility], [address], [place], [address], [place] tel:[phone] [facility] back pain (chief complaint) anxiety (chief complaint) HTN (chief complaint) Dietary surveillance and counselingLumbagoGe neralized anxiety disorderHypertensio n, Unspecified 5 Miguel Mesa. [address], [place], [address] , [place]. tel:[phone] Referring Provider: Moshe Rivera, [address], [place], [place], [address]. tel:[phone] OFFICE/OUTPA TIENT VISIT, [facility], [address], [place], [address], [place] tel:[phone] [facility] back pain (chief complaint) headache (chief complaint) Sick (chief complaint) anxiety (chief complaint) Dietary surveillance and counselingLumbagoGe neralized anxiety disorderAcute upper respiratory infections of other multiple sitesHeadache 4 Miguel Mesa. [address], [place], [address] , [place]. [phone] Referring Provider: Moshe Rivera, [address], [place], [address]. tel:[phone] OFFICE/OUTPA TIENT VISIT, [facility], [address], [place], [address], [place] tel:[phone] [facility] back pain (chief complaint) anxiety (chief complaint) headache (chief complaint) Dietary surveillance and counselingLumbagoGe neralized anxiety disorderHeadache 4 Miguel Mesa. [address], [place], [place], [address] , [place]. [phone] Referring Provider: Msohe Rivera, [address], [place], [address]. tel:[phone] OFFICE/OUTPA TIENT VISIT, [facility], [address], [place], [address], [place] tel:[phone] [facility] back pain (chief complaint) anxiety (chief complaint) tobacco (chief complaint) headache (chief complaint) LumbagoGeneralized anxiety disorderHeadacheDie tary surveillance and counselingTobacco Abuse 4 Miguel Mesa. [address], [place], [address] , [place]. tel:[phone] Referring Provider: Subha Ramirez [address], [place], [place], [address]. tel:[phone] OFFICE/OUTPA TIENT VISIT, [facility], [address], [place], [address], [place] tel:[phone] [facility] headache (chief complaint) back pain (chief complaint) anxiety (chief complaint) bronchtis (chief complaint) Dietary surveillance and counselingLumbagoHe adacheGeneralized anxiety disorderBronchitis, Acute 4 Miguel Mesa. [address], [place], [address] , [place]. tel:[phone] Referring Provider: Subha Ramirez [address], [place], [place], [address]. tel:[phone] OFFICE/OUTPA TIENT VISIT, [facility], [address], [place], [address], [place] tel:[phone] [facility] headache (chief complaint) anxiety (chief complaint) back pain (chief complaint) Dietary surveillance and counselingHeadacheG eneralized anxiety disorderLumbago 4 Miguel Mesa. [address], [place], [place], [address] , [place]. tel:[phone] Referring Provider: Subha Ramirez [address], [place], [place], [address]. tel:[phone] PREV VISIT, NEW, AGE 18-39 [facility], [address], [place], [place], [address], [place] tel:[phone] [facility] Physical (chief complaint) Dietary surveillance and counselingRoutine Medical ExamRoutine Medical Exam 4 Miguel Mesa. [address], [place], [place], [address] , [place]. tel:[phone] Family History Family Member Type Diagnosis Age At Onset Father Problem (finding) Alcoholism Mother Problem (finding) Back Pain Brother Problem (finding) Back Pain Payers Payer name Insurance type Covered alliance party ID Authoriza tion(s) No Information Social History Type Description Quantity Date Captured Comments Alcohol Use Details Unknown Caffeine Use Details Unknown Tobacco Use Status Smoking Status No Information Sex Female Chief Complaint And Reason For Visit No Information Plan Of Treatment Date Type Action Status Goal Tobacco cessation counseling completed Goal Tobacco cessation counseling completed Goal Tobacco cessation counseling completed Goal Tobacco cessation counseling completed Goal Tobacco cessation counseling completed Goal Tobacco cessation counseling completed Goal Tobacco cessation counseling completed Referral Ordered: Gastroenterology (related to Abnormal weight loss) ordered Referral Ordered: Referrals: Gastroenterology. Evaluate and treat ordered Referral Ordered: Inga Villegas (related to Headache) ordered Referral Referred To: Inga Villegas [address] [place], [phone] Ordered: Referrals: Inga Villegas. Evaluate and treat ordered Referral Ordered: Jerel Bass (related to Abnormal weight loss) ordered Referral Referred To: Jerel Bass [facility] [place], [phone] Ordered: Referrals: Jeerl Bass. Evaluate and treat ordered Referral Ordered: MRI BRAIN W/O DYE ordered Referral Ordered: Referral: Neurosurgery. ordered Referral Ordered: Physical Therapy ordered Referral Ordered: MRI LUMBAR SPINE W/O DYE ordered Referral Referred To: Physical Therapy Ordered: Referral: Physical Therapy. ordered History Of Present Illness Encounter Date Complaint History Of Prese nt Illness headache1 Pt has chronic m igraine headache. Pt did not clam picker topamax Pt told me no topamax at pharmacy. Pt also did not recieve call from neurology Her phone is not working. P{t still has heaache once per week. Pt denies any acute headache weight loss1 Pt has been losi ng weight. Pt states that she canot gain any weight despite eating a lot of calorie daily. Pt denies any abd pain or any appetite loss or nausea, vomiting back pain1 Pt has chornic l ow back pain .Pt denies any worsening pain, any loss of bladder control. anxiety1 Pt has chronic a nxiety and depression. Pt did not try zyprexa. PT told me parmacy did not have zyprexa Pt denie sany suicidal or homicidal thought. Pt denies any cyring spells ankle pain1 Pt has bilateral ankle pain due to osteochondritis dissecans. Pt has ankle pain daily Pt did not hear from ortho. underweight1 Pt is underweigh t. Pt states that she eats a lot and she denies any any nausea, vomiting, diarrhea. Pt just canot gain weight Pt has not done lab yet anxiety1 Pt has chronic a nxiety and depression. Pt takes xanax PRN. Pt states that remeron made her feeling stoned. Pt could not tolerate remeron. Pt also failed seroquel in the past Pt has mood swings. Pt denies any suicidal or homicidal thought. Pt feels irritable. headache1 Pt has migraine headache Pt has not been taking topamax at all. Pt had migraine x 3 during last month. Pt denies any acute headahce pt denie sany wrosening headache Pt denies waking up at night with headache Pt has photophobia and nauea with headache back pain1 Pt has chronic l ow back pain Pt denies any loss of bladder control. 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 Her previous ortho tried and failed injections. Pt states that the pain seems getting worse lately. Pt denies any swelling. Pt denies any injury back pain1 Pt has chronic l ow back pain due to DDD. Pt denies any worsening pain. Pt denies any loss of bladder control headache1 Pt has chronic m igraine headache. Pt states that she has been having migraineheadache about 1-2 per month while on topamax. Pt takes imitrex occassionally which helps to relieve her headache Pt c/o throbbing headache with nauea and photophobia with headache. Pt denies any worsening headache Pt natasha any head injury Pt denies waking up at night with headache anxiety1 Pt has chronic a nxiety. Pt takes xanax PRn. Pt also c/o feeling depressed lately with no interests in any activity. Pt denies any suicidal or homicidal thought. Pt denies any crying spells. Weight loss1 Pt has been losi ng weight. Pt lost totally close to 50 pounds during last 3 years. pt states that she does not have much of appetite. Pt denies any nasuea, vomiting, diarrhea or any abdominal pain. Pt also has been working more and really has less time to eat anxiety1 Pt has chronic a nxiety. Pt denies any depression or any suicijdal thought. Pt denies any crying spells. Pt doing ok with xanax PRN . headache1 Pt has migraine headache. Pt takes topamax daily and she has headache 2-3 per month now. Pt has throbbing headache with nausea and photophobia. Pt states that imitrex does help relieve herheadache. Pt denies any head injury. Pt denies any acute headache back pain1 Pt has chronic l ow back pain due to DDD. Pt has 5/10 pain,, worse with movement. Pt denies any loss of bowel or bladder control. Pt has mild sciatica. tobacco1 Pt smokes about 1 PPD. pt does not have any plan to quit Pt denies any sob weight loss1 Pt has lost 30 p ounds during last 3 years. Pt denies any GI issue. Pt has been diet and exercising. Pt denies any appetite loss anxiety1 Pt has chronic a nxiety. Pt denies any depression or any suicidal thought. Pt denies any crying spells. back pain1 Pt has chronic l ow back pain Pt deneis any loss of bowel or bladder control. Pt denies any worsening pain. pt has mild scaitcica and leg numbness. headache1 Pt has migraine headache. Pt takes topamax Pt only has headache 1-2 per month now around her period. Pt states that imitrex does relieve her headahce pt denies any head injury. Pt deneis any worsenign headache Pt denies waking up at night with headache headache1 Pt has chronic m igraine headache. Pt takes topamax and imitrex PRN. Pt has not had any headache for several weeks. Her MRI is not approved by insurance Pt states that she is actually doign ok sick Pt c/o ear pain, sinus congestion, soret throat, productive coughing for one week. Pt denies any fever. Pt failed OTC meds back pain1 Pt has chronic l ow back apin. Pt denies any sciatica. Pt failed NSAID. Pt takes norco PRN for pain Pt denies any loss of bladder control anxiety1 Pt has chronic a nxiety Pt denies any depression or any sucidal thought. Pt denies any crying spells headache1 Pt has chronic h eadache with throbbing with photophobia and nauea about 3-4 per month. Pt takes topamax daily and still has headache. Pt takes imitrex PRN for headache which helps. Pt denies any head injury or wornsening headache anxiety1 Pt has chronic a nxiety. Pt denies any depression or any suicidal thought. Pt denies any crying spells ,Pt takes xanax PRN and doing ok back apin1 Pt has chronic l ow back pain. Pt has 5/10 pain. Pt denies any l oss of bowel or bladder control. Pt c/o mild sciatica. Pt denies any numbness. Pt failed NSAID Physical Pt needs annual physical. pt has chornic low back pain and she also has diffuse upper back muscle pain. Pt denies any joint pain. Pt takes flexeril and norco PRN for pain. P failed NSAID Pt has 6/10 pain. Pt also has chronicanxeity. Pt denies any depression or any suicidal thought. Pt has recurrent migraine headache Pt has photophobia with nausea with headache. Pt has headache once per month. Pt denies any head injury. Pt has acute heacahe for several days now Pt has 5/10 headache. toe numnbess Pt notices mild numnbess left 2nd, 3rd, 4th and 5th toes for several weeks. Pt denies any apin. Pt denies any discoloration. tobacco1 Pt smokes about 1.5 PPD. Pt states that pharmacy told her no patch available for her headache1 Pt take topamax. Pt does not have any headache now while on topmax. Pt takes imitrex PRN and works ok. Pt denies any acute headache anxiety1 Pt has chronic a nxiety. Pt denies any depression or any suicidal thought Pt takes xanax PRN PT natasha any crying spells back pain1 Pt has chronic l ow back apin .Pt denies any loss of bowel or bladder control. Pt takes norco PRN for pain and doing ok. PT denies any loss of bowel or bladder control headache1 Pt has chronic h eadache. Pt takes topamax and imitrex PRN. Pt has headache only 1-2 per month. MRI denied by insurance. No worsening headaxche back pain1 Pt has chronic l ow back pain. Pt denies any loss of bowel or bladder control. Pt denies any worsening pain anxiety1 Pt has chronic a nxiety. Pt denies any depression or any suicidal thought Pt takes xanax PRN and doing ok. Pt denies any crying spells tobacco1 Pt smokes about one pack per day. Pt wants to quit back pian1 Pt has chronic l ow back pain. Pt states that her back pain is getting worse. PT denies any loss of owel or bladder control. Pt c/o bilateral sciatica and no numnbess. Pt states that her back pain usually get worse after dinner. Pt c/o sharp pain headache1 Pt has chornic i ntermittent migraine headahe Pt still has not done MRI of brain Pt takes topamax. Pt has migraine 1-2 per month now IMitrex help with headache. anxiety1 Pt has chronic a nxiety Pt denies any depression or any suicidasl thought. Pt denies any crying spells Pt denies any feeling of hopelessness anxiety1 Pt has chronic a nxiety Pt denies any depression or any suicieal thought. Pt denies cryig spells. Pt denies feeling of hopelessness. Pt just found out her financee was cheating on her and she had to move in with her mom. Pt feels very stressed out. headache1 Pt has chronic m igraine headache. Pt has throbbing headache 2-3 per month. Pt has not done MRI yet. PT is taking topamx. IMitrex also works well to relieve the headache Pt denies any head injury. Pt denies any worsening headache. Pt has photophobia and nausea with headache weight loss1 Pt has been losi ng weight. Pt feels stressed out and she has not been eating well. Pt has poor appetite. Pt denies any abd pain or any blood in stool or any nauea, vomiting back pain1 Pt has chronic l ow back pain. Pt denies any loss of bowel or bladder control. Pt has mild bilateral sciatica and leg numbness. Pt denies any worsening pain. Pt takes norco and flexeril for pain. Pt failed ultasm and NSAID headache Pertinent negati ves include memory loss or vomiting. Additional information: Pt has intermittent heaeache. Pt takes topamx which works ok. Pt has headache at least 5 per months. Pt states that topmax helpes which made the heeadache down to 2-3 per months. Pt has nauea, photophobia with headache Pt denies any head injury. anxiety The patient pres ents with anxious/fearful thoughts but denies fatigue. The anxiety is associated with headache. The patient denies any urinary frequency and vomiting. Additional information: Pt has chornic anxiety. Pt denies any depression or any suicidal thought. Pt takes xaznax PRN which works ok. LBP Pt has chornic l ow back pian Pt denies any loss of bowel or bladder control. Pt has some sciatica and numbness. pt failed PT. Pt states that sometimes she takes more than 2 per day due to abck pain PHysical Pt needs annual physical. Pt has chronic LBP. Pt denies any loss of alecia or bladder control. Pt denies any scaitica, Pt has dull and sharp pain around Lspine intemrittently, Pt denies any numbenss. Pt has chronic anxiety. Pt denies nay depression or any suicidal thought. Pt has panic attacks, Pt also has been taking topmax for chronic migraine headcahe. Pt denies any headache since taking topamx. Pt denies any other complaints chronic pain Pt has chronic l ow back pain. Pt denies any loss of bowel or bladder control. Pt has mild sciatica. Pt has left fibula fracture. She wsas evaluated by ortho and no further treatment necessary on that issue. However, she has OCD left ankle talar dome. Pt will do PT on that and potentially surgery per patient headcashe Pt has not had a ny headache on topamx 50 mg BID Pt denies any worsening symptoms anxiety Additional infor mation: Pt has chornic anxiety. Pt denies any depression or any suicidal thought. Pt takes xanax PRN and doing ok. fibular fx Pt has acute lef t fibular fx. Pt fell off the truck getting out last wednesday. Pt has nondisplaced left fibular fx. Pt has ortho appoitnment in 10 days. Pt has been walking with cam walker boot. Pt c/o pain back pain Additional infor mation: Pt has chronic LBP. Pt denies any loss of owel or bladder control. anxiety Additional infor mation: Pt has choronic anxiety Pt denies any deprssion or any suicdial thought. headache Pertinent negati ves include vomiting. Additional information: Pt has throbbing headache and getting worse lately. Pt has been getting worsening headache. Pt denies any head injury. Imitrex does help. Instructions Date Instruction Additional Infor mation Quit smoking Related to Abnor mal weight loss Weight management Related to Abn ormal weight loss Quit smoking Related to Heada dayanara Compliant with medic ation instruction Related to Headache Prescribed Activity and Exercise Education Related to Dietary Surveillance and Counseling Prescribed Diet Educ ation/Lifestyle Education Regarding Diet Related to Dietary Surveillance and Counseling Quit smoking Related to Heada dayanara Decrease caloric intake Related to Dietary surveillance counseling Physical activity counseling Rel ated to Dietary surveillance counseling Physical activity counseling Rel ated to Dietary surveillance counseling Decrease caloric intake Related to Dietary surveillance counseling Physical activity counseling Rel ated to Dietary surveillance counseling Decrease caloric intake Related to Dietary surveillance counseling Physical activity counseling Rel ated to Dietary surveillance counseling Decrease caloric intake Related to Dietary surveillance counseling Dietary counseling Related to Di etary surveillance counseling Decrease caloric intake Related to Dietary surveillance counseling Decrease caloric intake Related to Dietary surveillance counseling Dietary counseling Related to Di etary surveillance counseling Decrease caloric intake Related to Dietary surveillance counseling Dietary counseling Related to Di etary surveillance counseling Dietary counseling Related to Di etary surveillance counseling Decrease caloric intake Related to Dietary surveillance counseling Assessments Type Assessment Date No Information
--- OUTSIDE RECORDS SUMMARY | 2025-04-02 13:33 | XMS_ITS | Clinical Summary ---
Author Organization [facility] Address [address] [place] [address] Phone Care Team Providers Care Block Handler Name Role Phone Moshe Rivera Primary Care Provider [phone] Allergies No known active allergies Medications ondansetron (ZOFRAN) 4 MG Tablet Take 1 Tab by mouth every 8 hours as needed for Nausea - 1st line. 10 Tab 05/05/2018 Active FLUoxetine HCl (PROZAC PO) Take by mouth. Active TIZANIDINE HCL PO Take by mouth. Active BusPIRone HCl (BUSPAR PO) Take by mouth. Active ondansetron (ZOFRAN-ODT) 4 MG TABLET DISPERSIBLEIndic ations:Nausea Take 1 Tab by mouth every 8 hours as needed for Nausea - 1st line. 10 Tab 11/17/2018 Active Active Problems No known active problems Family History Relation Name Status Comments Father Mother Alive Social History Tobacco Use Types Packs/Day Years Used Date Smoking Tobacco: Every Day Cigarettes Smokeless Tobacco: Never Tobacco Cessation:Ready to Q uit: No; Counseling Given: No Alcohol Use Standard Drinks/Week Comments No 0 (1 standard drink = 0.6 oz pur e alcohol) Sexually Active Control Partners Comments Yes Male Comments No Sex and Gender Information Value Date Recorded Sex Assigned at Not on file Legal Sex Female 11:58 PM CDT Gender Identity Not on file Sexual Orientation Not on file Last Filed Vital Signs Vital Sign Reading Time Taken Comments Blood Pressure 105/65 11/17/2018 1:59 PM [employer] Pulse 114 11/17/2018 1:59 PM [employer] Temperature 36.6 C (97.9 F) 11/17/2018 1:59 PM [employer] Respiratory Rate 16 11/17/2018 1:59 PM [employer]PER Oxygen Saturation 97% 11/17/2018 1:59 PM [employer] Inhaled Oxygen Concentration - - Weight 68 kg (150 lb) 11/17/2018 1:59 PM [employer]UG [employer] HEL[employer] Height 162.6 cm (5' 4) 11/17/2018 1:59 PM [employer]UG [employer] Body Mass Index 25.75 11/17/2018 1:59 PM [employer]UG [employer] HELPER Plan of Treatment Health Maintenance Due Date Last Done Comments Hepatitis C Virus (HCV) Screening 1990 TdaP Immunization 1990 Human Papillomavirus (HPV) Immunization (1 - 3-dose series) 2005 SARS-COV-2 Immunization ( - 2023- season) 2024 Influenza Immunization (Season Ended) 2025 Respiratory Syncytial Virus (RSV) Immunization (Adult) (1 - 1-dose 75+ series) 2065 Hepatitis B Immunization Completed 001, 01/18/2001, 12/21/2000 DTaP/Tdap/Td Immunization Discontinued 2004, 05/10/1996, 05/20/1994, Additional history exists Meningococcal Immunization (ACWY) Aged Out No longer eligible based on patient's age to complete this topic Pneumococcal Immunization Combined Aged Out No longer eligible based on patient's age to complete this topic Rotavirus Immunization Aged Out No lo nger eligible based on patient's age to complete this topic Insurance MEDICAID [employer] Advance Directives * Full Code (Latest Code Status on File) Date Activated Date Inactivated Comments 12/16/2015 3:55 PM 12/17/2015 4:03 PM Full Code: FULL ARREST: Attempt Resuscitation/CPR and use intubation and mechanical ventilation as indicated. PRE-ARREST: Use all measures to stabilize patient. Care Teams Block Handler Relationship Specialty Start Date End Date Moshe Rivera [address] [place] [address] PCP - General Family Medicine 12/16/15
[2025-04-02] MEDS: AZITHROMYCIN 250 MG TABLET 1000 MG PO (15:05)
[2025-04-02 15:06] LABS: Add Urine Microscopic? YES; Glucose Urine UA Negative (Negative); Leukocyte Esterase Ur Trace LEU/UL (Negative); Nitrate Urine Positive (Negative); Specific Grav Ur >= 1.030 (1.010-1.020)
[2025-04-02] MEDS: cefTRIAXone 1 GM, LIDOCAINE 1% LOCAL INJ 2.1 ML IM (15:06)
[2025-04-02 15:10] LABS: Appearance Urine Sl Cloudy (Clear)
--- NOTE | 2025-04-02 15:19 | ED_ITS ---
HPI - Female Genitourinary General Chief complaint: Urogenital-Female Stated complaint: STI check Time Seen by Provider: 04/02/25 13:36 Source: patient Mode of arrival: ambulatory Limitations: no limitations History of Present Illness HPI Narrative: This is a 34-year-old female who presents with white discharge is concerned about STD otherwise there is no abdominal pain no pelvic pain no flank pain no fever chills. MD elicited complaint: vaginal discharge Related Data Allergies Allergy/AdvReac Type Severity Reaction Status Date / Time No Known Allergies Allergy Verified 04/02/25 15:00 Review of Systems Review of Systems: All systems reviewed & are unremarkable except as noted in HPI and below PMFSH Past Medical History Medical History Migraine Surgical History Surgical History No pertinent past surgical history Social History Social History Smoking packs per day: 1 Smoking cigarettes per day: 20.0 Smoking status: Unknown if ever smoked Tobacco type: cigarettes Second hand tobacco smoke exposure: Yes Alcohol intake: unknown Substance use: current Substance use type: methamphetamine Gender identity (if verbalized by the patient): Female Spiritual care concerns: No Exam Const: General: healthy appearing Nutritional Appearance: well nourished Orientation/consciousness: patient oriented x3 Limitations: no limitations HENMT: Head: normal to inspection Resp: Effort & Inspection: normal respiratory effort Auscultation: clear to auscultation bilaterally Cardio: Rate: regular rate Rhythm: regular rhythm GI: GI Palp: Yes Soft to palpation Auscultation: normal bowel sounds : General: Yes bladder normal to palpation Urinary Catheter: Urinary Catheter: patent and draining Back/Spine/Pelvis: Back: no CVA tenderness Course Course Emergency Course: Patient had a urine GNC performed, RPR HIV performed, patient received 1g IM ceftriaxone and 1g p.o. Zithromax UA shows leukocytes and will treat patient with antibiotic and Diflucan on outpatient basis. Vital Signs Vital signs: Vital Signs Temperature 36.8 C 04/02/25 13:25 Pulse Rate 119 H 04/02/25 13:25 Respiratory Rate 18 04/02/25 13:25 Blood Pressure 122/79 04/02/25 13:25 Pulse Oximetry 97 04/02/25 13:25 Oxygen Delivery Room Air 04/02/25 13:25 Temperature 36.8 C 04/02/25 13:25 Pulse Rate 119 H 04/02/25 13:25 Respiratory Rate 18 04/02/25 13:25 Blood Pressure 122/79 04/02/25 13:25 Pulse Oximetry 97 04/02/25 13:25 Oxygen Delivery Room Air 04/02/25 13:25 MDM - Female Genitourinary Lab Data Labs: Lab Results 04/02/25 Range/Units 13:53 Urine Color Yellow (Yellow) Urine Appearance Sl cloudy A (Clear) Urine pH 6.0 (5.0-8.0) Ur Specific [place] >= 1.030 H (1.010-1.020) Urine Protein Negative (Negative) Urine Glucose (UA) Negative (Negative) Urine Ketones Trace H (Negative) Ur Blood (Man) Negative (Negative) Urine Nitrate Positive H (Negative) Urine Bilirubin Negative (Negative) Urine Urobilinogen 0.2 (0.2-1.0) mg/dL Leukocyte Esterase Rfl Trace H (Negative) IRINA/UL C. trachomatis (PCR) Pending N. gonorrhoeae (PCR) Pending Critical Care Time Critical Care Time Critical Care Time: No Discharge Plan Discharge Clinical Impression: Vaginal yeast infection, Possible exposure to STD UTI (urinary tract infection) Qualifiers: Urinary tract infection type: site unspecified Hematuria presence: without hematuria Qualified Code(s): N39.0 - Urinary tract infection, site not specified Patient Disposition: Home Condition: Stable Instructions: Antibiotic Form, Sexually Transmitted Diseases (ED), Safe Sex Practices (ED), Urinary Tract Infection in Women (ED), Yeast Infection (ED) Additional Instructions: advised to take medication as prescribed and to follow with primary care physician in 1 week for further evaluation and treatment. Patient Language: Lithuanian Prescriptions: New nitrofurantoin monohyd/m-cryst [Macrobid] 100 mg capsule 100 mg PO Q12H 7 Days Qty: 14 0RF Rx Instructions: must administer with a meal/food fluconazole [Diflucan] 100 mg tablet 100 mg PO DAILY 2 Days Qty: 2 0RF Rx Instructions: take 1st dose now, and next dose after completion of antibiotics. Follow-up/Referrals: Bravo Otto MD [Primary Care Provider] - Time of Disposition: 15:24
[2025-04-02 15:30] VITALS: BP 118/63; PULSE 69; RESP 18; O2SAT 98
[2025-04-02 15:51] LABS: HIV 1 P24 AG Negative (Negative); HIV 1/2 AB Negative (Negative)
--- NOTE | 2025-04-04 12:36 | PC.NURSE ---
URINE CULTURE PRELIMINARY POSITIVE FOR E COLI PT ON MACROBID FOR 7 DAYS NO FURTHER ORDER PER DR NIXON
[2025-04-05 06:23] LABS: Progressive FTA-ABS POSITIVE (NEGATIVE)
--- NOTE | 2025-04-05 11:25 | PC.NURSE ---
attempted to contact pt regarding her test results. message left to return call. letter mailed. Sara with infection control notified.
--- NOTE | 2025-04-05 15:11 | PC.NURSE ---
PT HAS BEEN CONTACTED AND AWARE OF POSITIVE RESULTS FOR SYPHILIS. SHE VERBALIZED UNDERSTANDING TO RETURN TO ED FOR TREATMENT, SHE DOES NOT HAVE A PRIMARY DR AT THIS TIME. SHE REPORTS SHE WILL RETURN TODAY FOR TREATMENT.
--- NOTE | 2025-04-05 15:19 | PC.NURSE ---
FINAL URINE CULTURE RESULTS: ISOLATE 1: GREATER THAN 100,000 CFU/ML OF ESCHERICHIA COLI. NO CHANGE IN TX NEEDED PER DR GASTELUM AND C&S.
== END 2025-04-02 15:30 | disposition home or self-care (01) ==
PROVIDERS: Emergency Provider Emergency Medicine; PCP Family Medicine
DX: B37.31 Acute candidiasis of vulva and vagina (principal); N39.0 Urinary tract infection, site not specified; Z11.3 Encounter for screening for infections with a predominantly sexual mode of transmission; F17.210 Nicotine dependence, cigarettes, uncomplicated
CPT/HCPCS: 36415; 81001; 86592; 86593; 86780; 87077; 87086; 87088; 87186; 87491; 87591; 87806; 96372; 99284; A9270; J0696; J2003

== ENCOUNTER 2025-04-14 02:54 | Emergency (ER) | payer OTHER, SELFPAY ==
--- OUTSIDE RECORDS SUMMARY | 2025-04-14 02:56 | XMS_ITS | Continuity of Care Document ---
Author Organization [facility] Address [address] [address] [place] [address] Phone Care Team Providers Care Disability Benefits Specialist Name Role Phone Moshe Rivera MD Unavailable [...] one in two hours, max 2/24 hours [place] 7.5 mg-325 mg tablet take 1 tablet [...] Diagnoses Date Provider Providers Copied on Encounter [facility], [place], [facility], [address], [place], [address], tel:[phone] [facility] Medicine No Information 3-201 7 Miguel Mesa. [address], [address], [place], [address] , [place]. tel:[phone] OFFICE/OUTPA TIENT VISIT, [facility], [address], [place], [address], [place] tel:[phone] [facility] Medicine headache1 (chief complaint) weight loss1 (chief complaint) back pain1 (chief complaint) anxiety1 (chief complaint) Generalized anxiety disorderAbnormal weight lossLow back painHeadache May- 0-201 7 Miguel Mesa. [address], [address], [address] , [place]. tel:[phone] Referring Provider: Moshe Rivera [address], [place], [place], [address]. tel:[phone] OFFICE/OUTPA TIENT VISIT, [facility], [address], [place], [place], [address], [place] tel:[phone] [facility] [place] back pain1 (chief complaint) headache1 (chief complaint) anxiety1 (chief complaint) underweigh t1 (chief complaint) ankle pain1 (chief complaint) HeadacheGeneralized anxiety disorderOsteochondr itis dissecans, unsp ankle and joints of footAbnormal weight loss 7 Miguel Mesa. [address], [place], [place], [address] , [place]. [phone] Referring Provider: Subha Ramirez [address], [place], [place], [address]. tel:[phone] OFFICE/OUTPA TIENT VISIT, [facility], [address], [place], [place], [address], [place] tel:[phone] [facility] [place] Weight loss1 (chief complaint) anxiety1 (chief complaint) headache1 (chief complaint) back pain1 (chief complaint) ankle pain1 (chief complaint) Abnormal weight lossLumbagoGenerali zed anxiety disorderHeadache 7 Miguel Mesa. [address], [place], [place], [address] , [place]. [phone] Referring Provider: Subha [address], [place], [place], [address]. tel:[phone] OFFICE/OUTPA TIENT VISIT, [facility], [address], [place], [place], [address], [place] tel:[phone] [facility] [place] anxiety1 (chief complaint) headache1 (chief complaint) back pain1 (chief complaint) tobacco1 (chief complaint) LumbagoHeadacheGene ralized anxiety disorderTobacco use 7 Miguel Mesa. [address], [place], [place], [address] , [place]. [phone] Referring Provider: Subha [address], [place], [place], [address]. tel:[phone] OFFICE/OUTPA TIENT VISIT, [facility], [address], [place], [place], [address], [place] tel:[phone] [facility] Medicine headache1 (chief complaint) back pain1 (chief complaint) anxiety1 (chief complaint) weight loss1 (chief complaint) HeadacheLow back painGeneralized anxiety disorderAbnormal weight loss Dec- 7 Miguel Mesa. [address], [place], [place], [address] , [place]. tel:[phone] OFFICE/OUTPA TIENT VISIT, [facility], [address], [place], [place], [address], [place] tel:[phone] [facility] [place] headache1 (chief complaint) sick (chief complaint) back pain1 (chief complaint) anxiety1 (chief complaint) HeadacheLow back painGeneralized anxiety disorderAcute upper respiratory infection, unspecified 7 Miguel Mesa. [address], [place], [place], [address] , [place]. tel:[phone] Referring Provider: Subha [address], [place], [place], [address]. tel:[phone] OFFICE/OUTPA TIENT VISIT, [facility], [address], [place], [place], [address], [place] tel:[phone] [facility] [place] headache1 (chief complaint) anxiety1 (chief complaint) back apin1 (chief complaint) HeadacheLow back painGeneralized anxiety disorder 6 Miguel Mesa. [address], [address], [place], [place], [address] , [place]. tel:[phone] Referring Provider: Subha [address], [place], [place], [address]. tel:[phone] PREV VISIT, EST, AGE 18-39 [facility] [place], [facility], [address], [place], [place], [address], [place] tel:[phone] [facility] Medicine Physical (chief complaint) Encntr for general adult medical exam w/o abnormal findings 6 Miguel Mesa. [address], [address], [place], [place], [address] , [place]. tel:[phone] Referring Provider: Subha Ramirez [address], [place], [place], [address]. tel:[phone] OFFICE/OUTPA TIENT VISIT, [facility], [address], [place], [place], [address], [place] tel:[phone] [facility] [place] back pain1 (chief complaint) anxiety1 (chief complaint) headache1 (chief complaint) tobacco1 (chief complaint) toe numnbess (chief complaint) HeadacheLow back painTobacco useGeneralized anxiety disorder 6 Miguel Mesa. [address], [place], [place], [address] , [place]. [phone] Referring Provider: Subha Ramirez [address], [place], [place], [address]. tel:[phone] OFFICE/OUTPA TIENT VISIT, [facility], [address], [place], [place], [address], [place] tel:[phone] [facility] [place] headache1 (chief complaint) back pain1 (chief complaint) anxiety1 (chief complaint) tobacco1 (chief complaint) Abnormal weight lossHeadacheLow back painTobacco use 6 Miguel Mesa. [address], [place], [place], [address] , [place]. tel:[phone] Referring Provider: Subha Ramirez [address], [place], [place], [address]. tel:[phone] OFFICE/OUTPA TIENT VISIT, [facility], [address], [place], [place], [address], [place] tel:[phone] [facility] [place] back pian1 (chief complaint) headache1 (chief complaint) anxiety1 (chief complaint) HeadacheLow back painVitamin D deficiency, unspecifiedGenerali zed anxiety disorder 6 Miguel Mesa. [address], [place], [place], [address] , [place]. tel:[phone] Referring Provider: Subha Ramirez [address], [place], [place], [address]. tel:[phone] OFFICE/OUTPA TIENT VISIT, EST [facility] [place], [address], [place], [place], [address], [place] tel:[phone] [facility] Medicine headache1 (chief complaint) back pain1 (chief complaint) anxiety1 (chief complaint) weight loss1 (chief complaint) Abnormal weight lossChronic migraine w/o aura, not intractable, w/o status migrainosusOther spondylosis, lumbar regionGeneralized anxiety disorder 5 Miguel Mesa. [address], [address], [place], [place], [address] , [place]. [phone] Referring Provider: Subha Ramirez [address], [place], [place], [address]. tel:[phone] OFFICE/OUTPA TIENT VISIT, EST [facility] [place], [address], [place], [place], [address], [place] tel:[phone] [facility] Medicine anxiety (chief complaint) LBP (chief complaint) headache (chief complaint) LumbagoGeneralized anxiety disorderHeadache 5 Miguel Mesa. [address], [place], [place], [address] , [place]. [phone] Referring Provider: Subha Ramirez [address], [place], [place], [address]. tel:[phone] PREV VISIT, EST, AGE 18-39 [facility] [place], [address], [place], [place], [address], [place] tel:[phone] [facility] Medicine PHysical (chief complaint) ROUTINE MEDICAL EXAM 5 Miguel Mesa. [address], [place], [place], [address] , [place]. [phone] Referring Provider: Subha Ramirez [address], [place], [place], [address]. tel:[phone] OFFICE/OUTPA TIENT VISIT, [facility], [address], [place], [place], [address], [place] tel:[phone] [facility] [place] chronic pain (chief complaint) headcashe (chief complaint) anxiety (chief complaint) LumbagoGeneralized anxiety disorderHeadacheClo sed fibular shaft fx 5 Miguel Mesa. [address], [place], [place], [address] , [place]. tel:[phone] Referring Provider: Subha Ramirez [address], [place], [place], [address]. tel:[phone] OFFICE/OUTPA TIENT VISIT, [facility], [address], [place], [place], [address], [place] tel:[phone] [facility] [place] fibular fx (chief complaint) back pain (chief complaint) anxiety (chief complaint) headache (chief complaint) LumbagoClosed fibular shaft fxGeneralized anxiety disorderHeadache 5 Miguel Mesa. [address], [place], [place], [address] , [place]. tel:[phone] Referring Provider: Subha Ramirez [address], [place], [place], [address]. tel:[phone] OFFICE/OUTPA TIENT VISIT, [facility], [address], [place], [place], [address], [place] tel:[phone] [facility] [place] back pain (chief complaint) headache (chief complaint) anxiety (chief complaint) Dietary surveillance and counselingGeneraliz ed anxiety disorderHeadacheLum bago 5 Miguel Mesa. [address], [place], [place], [address] , [place]. tel:[phone] Referring Provider: Subha Ramirez [address], [place], [place], [address]. tel:[phone] OFFICE/OUTPA TIENT VISIT, [facility], [address], [place], [place], [address], [place] tel:[phone] [facility] [place] back pain (chief complaint) anxiety (chief complaint) HTN (chief complaint) Dietary surveillance and counselingLumbagoGe neralized anxiety disorderHypertensio n, Unspecified 5 Miguel Mesa. [address], [place], [place], [address] , [place]. tel:[phone] Referring Provider: Moshe Rivera, [address], [place], [place], [address]. tel:[phone] OFFICE/OUTPA TIENT VISIT, [facility], [address], [place], [place], [address], [place] tel:[phone] [facility] [place] back pain (chief complaint) headache (chief complaint) Sick (chief complaint) anxiety (chief complaint) Dietary surveillance and counselingLumbagoGe neralized anxiety disorderAcute upper respiratory infections of other multiple sitesHeadache 4 Miguel Mesa. [address], [place], [place], [address] , [place]. [phone] Referring Provider: Moshe Rivera, [address], [place], [place], [address]. tel:[phone] OFFICE/OUTPA TIENT VISIT, [facility], [address], [place], [place], [address], [place] tel:[phone] [facility] [place] back pain (chief complaint) anxiety (chief complaint) headache (chief complaint) Dietary surveillance and counselingLumbagoGe neralized anxiety disorderHeadache 4 Miguel Mesa. [address], [place], [place], [address] , [place]. [phone] Referring Provider: Moshe Rivera, [address], [place], [place], [address]. tel:[phone] OFFICE/OUTPA TIENT VISIT, [facility], [address], [place], [place], [address], [place] tel:[phone] [facility] [place] back pain (chief complaint) anxiety (chief complaint) tobacco (chief complaint) headache (chief complaint) LumbagoGeneralized anxiety disorderHeadacheDie tary surveillance and counselingTobacco Abuse 4 Miguel Mesa. [address], [place], [place], [address] , [place]. tel:[phone] Referring Provider: Subha Ramirez [address], [place], [place], [address]. tel:[phone] OFFICE/OUTPA TIENT VISIT, [facility], [address], [place], [place], [address], [place] tel:[phone] [facility] [place] headache (chief complaint) back pain (chief complaint) anxiety (chief complaint) bronchtis (chief complaint) Dietary surveillance and counselingLumbagoHe adacheGeneralized anxiety disorderBronchitis, Acute 4 Miguel Mesa. [address], [place], [place], [address] , [place]. tel:[phone] Referring Provider: Subha Ramirez [address], [place], [place], [address]. tel:[phone] OFFICE/OUTPA TIENT VISIT, [facility], [address], [place], [place], [address], [place] tel:[phone] [facility] [place] headache (chief complaint) anxiety (chief complaint) back pain (chief complaint) Dietary surveillance and counselingHeadacheG eneralized anxiety disorderLumbago 4 Miguel Mesa. [address], [place], [place], [address] , [place]. tel:[phone] Referring Provider: Subha Ramirez [address], [place], [place], [address]. tel:[phone] PREV VISIT, NEW, AGE 18-39 [facility] [place], [address], [place], [place], [address], [place] tel:[phone] [facility] Medicine Physical (chief complaint) Dietary surveillance and counselingRoutine Medical ExamRoutine Medical Exam 4 Miguel Mesa. [address], [place], [place], [address] , [place]. tel:[phone] Family History Family Member Type Diagnosis Age At Onset Father Problem (finding) Alcoholism Mother Problem (finding) Back Pain Brother Problem (finding) Back Pain Payers Payer name Insurance type Covered republican ID Authoriza tion(s) No Information Social History [...] ordered Referral Referred To: Inga Villegas [address] [place], [phone] Ordered: Referrals: Inga Villegas. Evaluate and treat ordered Referral Ordered: Jerel Bass (related to Abnormal weight loss) ordered Referral Referred To: Jerel Bass [facility] [place], [phone] Ordered: Referrals: Jerel Bass. Evaluate and treat ordered Referral Ordered: MRI BRAIN W/O DYE ordered Referral Ordered: Referral: Neurosurgery. ordered Referral Ordered: Physical Therapy ordered Referral Ordered: MRI LUMBAR SPINE W/O DYE ordered Referral Referred To: Physical Therapy Ordered: Referral: Physical Therapy. ordered History Of Present Illness Encounter Date Complaint History Of Prese nt Illness headache1 Pt has chronic m igraine headache. 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 Pt denies any cyring spells back pain1 Pt has chronic l ow back pain Pt denies any loss of bladder control. Pt denies any worsening pain headache1 Pt has migraine headache Pt has not been taking topamax at all. Pt had migraine x 3 during last month. Pt denies any acute headahce pt denie sany wrosening headache Pt denies waking up at night with headache Pt has photophobia and nauea with headache anxiety1 Pt has chronic a nxiety and depression. Pt takes xanax PRN. Pt states that remeron made her feeling stoned. Pt could not tolerate remeron. Pt also failed seroquel in the past Pt has mood swings. Pt denies any suicidal or homicidal thought. Pt feels irritable. underweight1 Pt is underweigh t. Pt states that she eats a lot and she denies any any nausea, vomiting, diarrhea. Pt just canot gain weight Pt has not done lab yet ankle pain1 Pt has bilateral ankle pain due to osteochondritis dissecans. Pt has ankle pain daily Pt did not hear from ortho. Weight loss1 Pt has been losi ng [...] homicidal thought. Pt denies any crying spells. headache1 Pt has chronic m igraine headache. Pt states that she has been having migraineheadache about 1-2 per month while on topamax. Pt takes imitrex occassionally which helps to relieve her headache Pt c/o throbbing headache with nauea and photophobia with headache. Pt denies any worsening headache Pt natasha any head injury Pt denies waking up at night with headache back pain1 Pt has chronic l ow back pain due to DDD. Pt denies any worsening pain. Pt denies any loss of bladder control ankle pain1 Pt has chronic b ilateral ankle pain due to talar dome osteochondritis dissecans. Her previous ortho tried and failed injections. Pt states that the pain seems getting worse lately. Pt denies any swelling. Pt denies any injury anxiety1 Pt has chronic a nxiety. Pt [...] plan to quit Pt denies any sob headache1 Pt has migraine headache. Pt takes topamax Pt only has headache 1-2 per month now around her period. Pt states that imitrex does relieve her headahce pt denies any head injury. Pt deneis any worsenign headache Pt denies waking up at night with headache back pain1 Pt has chronic l ow back pain Pt deneis any loss of bowel or bladder control. Pt denies any worsening pain. pt has mild scaitcica and leg numbness. anxiety1 Pt has chronic a nxiety. Pt denies any depression or any suicidal thought. Pt denies any crying spells. weight loss1 Pt has lost 30 p ounds during last 3 years. Pt denies any GI issue. Pt has been diet and exercising. Pt denies any appetite loss headache1 Pt has chronic m igraine headache. [...] several days now Pt has 5/10 headache. back pain1 Pt has chronic l ow back apin .Pt denies any loss of bowel or bladder control. Pt takes norco PRN for pain and doing ok. PT denies any loss of bowel or bladder control anxiety1 Pt has chronic a nxiety. Pt denies any depression or any suicidal thought Pt takes xanax PRN PT natasha any crying spells headache1 Pt take topamax. Pt does not have any headache now while on topmax. Pt takes imitrex PRN and works ok. Pt denies any acute headache tobacco1 Pt smokes about 1.5 PPD. Pt states that pharmacy told her no patch available for her toe numnbess Pt notices mild numnbess left 2nd, 3rd, 4th and 5th toes for several weeks. Pt denies any apin. Pt denies any discoloration. headache1 Pt has chronic h eadache. Pt [...] spells Pt denies any feeling of hopelessness back pain1 Pt has chronic l ow back pain. Pt denies any loss of bowel or bladder control. Pt has mild bilateral sciatica and leg numbness. Pt denies any worsening pain. Pt takes norco and flexeril for pain. Pt failed ultasm and NSAID weight loss1 Pt has been losi ng weight. Pt feels stressed out and she has not been eating well. Pt has poor appetite. Pt denies any abd pain or any blood in stool or any nauea, vomiting headache1 Pt has chronic m igraine headache. Pt has throbbing headache 2-3 per month. Pt has not done MRI yet. PT is taking topamx. IMitrex also works well to relieve the headache Pt denies any head injury. Pt denies any worsening headache. Pt has photophobia and nausea with headache anxiety1 Pt has chronic a nxiety Pt denies any depression or any suicieal thought. Pt denies cryig spells. Pt denies feeling of hopelessness. Pt just found out her financee was cheating on her and she had to move in with her mom. Pt feels very stressed out. headache Pertinent negati ves include memory loss [...] loss Quit smoking Related to Heada dayanara Quit smoking Related to Heada dayanara Compliant with medic ation instruction Related to Headache Prescribed Activity and Exercise Education Related to Dietary Surveillance and Counseling Prescribed Diet Educ ation/Lifestyle Education Regarding Diet Related to Dietary Surveillance and Counseling Physical activity counseling Rel ated to Dietary [...]
[2025-04-14 02:58] VITALS: BP 118/74; PULSE 79; RESP 18; TEMP 36.4; O2SAT 99
--- NOTE | 2025-04-14 03:01 | ED.FEMALEGU ---
HPI - Female Genitourinary General Chief complaint: Urogenital-Female Stated complaint: sti Time Seen by Provider: 04/14/25 02:55 Source: patient Mode of arrival: ambulatory Limitations: no limitations History of Present Illness HPI Narrative: Patient is a 34-year-old female with an exposure to syphilis apparently in the past month. She tested positive for syphilis earlier this month but did not get treatment. She also had a UTI and just started Macrobid in the past few days. Upon review of her STD panel, she did have syphilis positive and requires treatment at this time. Further, she had a UTI that was in sensitive to Macrobid and we will use Cipro now with better sensitivity. MD elicited complaint: vaginal discharge ( White) Pertinent past history: other ( none) Onset (ago): week(s) ( 3) Location of symptoms: external genitalia and vaginal Severity: mild Female Urogenital Radiation: Non-Radiating Severity scale (1-10): 1 Quality of pain: dull Consistency: intermittent Vaginal discharge: white Vaginal bleeding: none Exacerbating factors: none Relieving factors: none Associated symptoms: denies other symptoms Treatment prior to arrival: other ( Macrobid for UTI was given to the patient at her 3 weeks ago appointment) Sexual activity: Yes Patient : No Related Data Allergies Allergy/AdvReac Type Severity Reaction Status Date / Time No Known Allergies Allergy Verified 04/14/25 03:02 Review of Systems Review of Systems: All systems reviewed & are unremarkable except as noted in HPI and below Constitutional: Constitutional: Reports no additional constitutional complaints Eyes: Eyes: Reports no additional eye complaints ENT: Reports system reviewed and no additional complaints, except as documented Cardiovascular: Cardiovascular: Reports no additional cardiovascular complaints Respiratory: Respiratory: Reports no additional respiratory complaints Gastrointestinal: Gastrointestinal: Reports no additional gastrointestinal complaints Genitourinary: Genitourinary: Reports no additional female genitourinary complaints Musculoskeletal: Musculoskeletal: Reports no additional musculoskeletal complaints Integumentary/Breasts: Skin/Breast: Reports system reviewed and no additional complaints, except as docu Neurologic: Reports system reviewed and no additional complaints, except as documented Psychiatric: Psychiatric: Reports no additional psychiatric complaints Endocrine: Endocrine: Reports no additional endocrine complaints Hematologic/Lymphatic: Hematologic/Lymphatic: Reports no additional hematologic/lymphatic complaints Allergic/Immunologic: Allergic/Immunologic: Reports no additional allergic/immunologic complaints [facility] Past Medical History Medical History Migraine Surgical History Surgical History No pertinent past surgical history Social History Social History Smoking packs per day: 1 Smoking cigarettes per day: 20.0 Smoking status: Unknown if ever smoked Tobacco type: cigarettes Second hand tobacco smoke exposure: Yes Alcohol intake: unknown Substance use: current Substance use type: methamphetamine Gender identity (if verbalized by the patient): Female Spiritual care concerns: No Exam Const: General: healthy appearing Nutritional Appearance: well nourished Orientation/consciousness: patient oriented x3 HENMT: Head: normal to inspection Ears: external ears normal Face/Nose/Sinus: Normal external nose present Eyes: Conjunctivae: conjunctivae normal Pupils: Equal, round and reactive pupils present EOM: EOMs intact bilaterally Neck: Neck: normal visual inspection Chest: Chest palpation & inspection: normal inspection of the chest Resp: Effort & Inspection: normal respiratory effort and not labored Auscultation: clear to auscultation bilaterally and no crackles Cardio: Rate: regular rate Rhythm: regular rhythm Heart sounds: no murmurs GI: Inspection: non-distended GI Palp: Yes Soft to palpation and No Tenderness to palpation present (GI) Auscultation: normal bowel sounds : General: Yes bladder normal to palpation Other: deferred vaginal exam Skin: General skin exam: normal color Rashes: no rashes Wounds: no wounds Neuro: General: patient oriented x3, moves all extremities and no meningeal signs Extrem: General: normal to inspection Psych: Appearance: grossly normal Mental Status: mental status grossly normal Affect: normal affect Course Vital Signs Vital signs: Vital Signs Temperature 36.4 C 04/14/25 02:58 Pulse Rate 79 04/14/25 02:58 Respiratory Rate 18 04/14/25 02:58 Blood Pressure 118/74 04/14/25 02:58 Pulse Oximetry 99 04/14/25 02:58 Oxygen Delivery Room Air 04/14/25 02:58 Temperature 36.4 C 04/14/25 02:58 Pulse Rate 79 04/14/25 02:58 Respiratory Rate 18 04/14/25 02:58 Blood Pressure 118/74 04/14/25 02:58 Pulse Oximetry 99 04/14/25 02:58 Oxygen Delivery Room Air 04/14/25 02:58 MDM - Female Genitourinary MDM Narrative Medical decision making narrative: patient is a 34-year-old female with syphilis positive 3 weeks ago and untreated. Also the patient has UTI that is just been started on treatment with Macrobid. Patient proceeded to wait 3 weeks to deal with both of these problems. After our discussion, it appears that her partner had outside intercourse and got treated and therefore had a negative test at this facility and further she had a positive. The possibility exists that she has passed it back to him and he needs to see his STD testing again at this time. I suggested they both get retested for all STDs in the next week. I suggested no intercourse. We will stop the Macrobid and start Cipro. Urine culture was reviewed and STD cultures reviewed. She was already given Rocephin and azithromycin at initial visit however gonorrhea and chlamydia were negative. Medical Records Attestation: I reviewed the patient's medical records. Medical records narrative: Patient's chart was reviewed for prior testing done 3 weeks ago. Only STD positive was syphilis. Discharge Plan Discharge Clinical Impression: Syphilis UTI (urinary tract infection) Qualifiers: Urinary tract infection type: acute cystitis Hematuria presence: without hematuria Qualified Code(s): N30.00 - Acute cystitis without hematuria Patient Disposition: Home Condition: Stable Instructions: Antibiotic Form, Sexually Transmitted Diseases (ED), Urinary Tract Infection in Women (DC) Additional Instructions: Please get STD testing redone again in the next 8-10 days. Further, do not have intercourse until everybody is negative. please stop the Macrobid and start the Cipro for the UTI. Patient Language: Norwegian Prescriptions: New ciprofloxacin HCl [Cipro] 500 mg tablet 500 mg PO BID 7 Days Qty: 14 0RF No Action nitrofurantoin monohyd/m-cryst [Macrobid] 100 mg capsule 100 mg PO Q12H 7 Days Qty: 14 0RF Rx Instructions: must administer with a meal/food fluconazole [Diflucan] 100 mg tablet 100 mg PO DAILY 2 Days Qty: 2 0RF Rx Instructions: take 1st dose now, and next dose after completion of antibiotics. Follow-up/Referrals: Moshe Rivera MD [Primary Care Provider] - Time of Disposition: 03:40
--- OUTSIDE RECORDS SUMMARY | 2025-04-14 03:04 | XMS_ITS | Continuity of Care Document ---
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 Role Phone Moshe Rivera MD Unavailable Unavailable Allergies, Adverse Reactions, Alerts Substance Reaction Status Criticality No Known Allergies Active No Inform ation Medications Medication Instructions Dosage Effective Dates (start - stop) Status Comments Zyprexa 5 mg tablet take 1 tablet by oral route every day 5 MG - Active Xanax 1 mg tablet take 1 tablet (1MG) by oral route 2 times every day as needed 1 MG - Active avoid driving or operate machines Topamax 50 mg tablet take 1 tablet by oral route 2 times every day 50 MG - Active [place] 7.5 mg-325 mg tablet take 1 tablet by oral route 2 times every day as needed for pain 1 tablet - Active avoid driving or operaet machines, Imitrex 50 mg tablet take 1 tablet by oral route as needed 50 MG - Active take one at onset of headache, may repeat x one in two hours, max 2/24 hours Lexapro 10 mg tablet take 1 tablet by oral route every day 10 MG - Active cyclobenzaprine 10 mg tablet [...] Diagnoses Date Provider Providers Copied on Encounter [facility], [address], [address], tel:[phone] [facility] Medicine No Information 3-201 [address], [address] , [place]. tel:[phone] OFFICE/OUTPA TIENT VISIT, [facility], [address] [place], [address], [place] tel:[phone] [facility] Medicine headache1 (chief complaint) weight loss1 (chief complaint) back pain1 (chief complaint) anxiety1 (chief complaint) Generalized anxiety disorderAbnormal weight lossLow back painHeadache May- 0-201 7 [address]. [address], [address], [address] , [place]. tel:[phone] Referring Provider: Moshe Rivera [address], [place], [place], [address]. tel:[phone] OFFICE/OUTPA TIENT VISIT, [facility], [address], [place], [place], [address], [place] tel:[phone] [facility] back pain1 (chief complaint) headache1 (chief complaint) anxiety1 (chief complaint) underweigh t1 (chief complaint) ankle pain1 (chief complaint) HeadacheGeneralized anxiety disorderOsteochondr itis dissecans, unsp ankle and joints of footAbnormal weight loss 7 [address]. [address], [address], [place], [place], [address] , [place]. [phone] Referring Provider: Subha [address], [place], [place], [address]. tel:[phone] OFFICE/OUTPA TIENT VISIT, [facility], [address], [place], [place], [address], [place] tel:[phone] [facility] Weight loss1 (chief complaint) anxiety1 (chief complaint) headache1 (chief complaint) back pain1 (chief complaint) ankle pain1 (chief complaint) Abnormal weight lossLumbagoGenerali zed anxiety disorderHeadache [address]. [address], [address], [place], [place], [address] , [place]. [phone] Referring Provider: Subha [address], [place], [place], [address]. tel:[phone] OFFICE/OUTPA TIENT VISIT, [facility], [address], [place], [place], [address], [place] tel:[phone] [facility] anxiety1 (chief complaint) headache1 (chief complaint) back pain1 (chief complaint) tobacco1 (chief complaint) LumbagoHeadacheGene ralized anxiety disorderTobacco use [address]. [address], [address], [place], [place], [address] , [place]. [phone] Referring Provider: Subha [address], [place], [place], [address]. tel:[phone] OFFICE/OUTPA TIENT VISIT, [facility], [address], [place], [place], [address], [place] tel:[phone] [facility] Medicine headache1 (chief complaint) back pain1 (chief complaint) anxiety1 (chief complaint) weight loss1 (chief complaint) HeadacheLow back painGeneralized anxiety disorderAbnormal weight loss Dec- 7 [address]. [address], [place], [place], [address] , [place]. tel:[phone] OFFICE/OUTPA TIENT VISIT, [facility], [address], [place], [place], [address], [place] tel:[phone] [facility] headache1 (chief complaint) sick (chief complaint) back pain1 (chief complaint) anxiety1 (chief complaint) HeadacheLow back painGeneralized anxiety disorderAcute upper respiratory infection, unspecified [address]. [address], [address], [place], [place], [address] , [place]. tel:[phone] Referring Provider: Subha [address], [place], [place], [address]. tel:[phone] OFFICE/OUTPA TIENT VISIT, [facility], [address], [place], [place], [address], [place] tel:[phone] [facility] headache1 (chief complaint) anxiety1 (chief complaint) back apin1 (chief complaint) HeadacheLow back painGeneralized anxiety disorder [address]. [address], [address], [place], [place], [address] , [place]. tel:[phone] Referring Provider: Subha [address], [place], [place], [address]. tel:[phone] PREV VISIT, EST, AGE 18-39 [facility], [address], [place], [place], [address], [place] tel:[phone] [facility] Medicine Physical (chief complaint) Encntr for general adult medical exam w/o abnormal findings 6 [address]. [address], [address], [place], [place], [address] , [place]. tel:[phone] Referring Provider: Subha Ramirez [address], [place], [place], [address]. tel:[phone] OFFICE/OUTPA TIENT VISIT, [facility], [address], [place], [address], [place] tel:[phone] [facility] back pain1 (chief complaint) anxiety1 (chief complaint) headache1 (chief complaint) tobacco1 (chief complaint) toe numnbess (chief complaint) HeadacheLow back painTobacco useGeneralized anxiety disorder [address]. [address], [address], [place], [place], [address] , [place]. [phone] Referring Provider: Subha Ramirez [address], [place], [place], [address]. tel:[phone] OFFICE/OUTPA TIENT VISIT, [facility], [address], [place], [place], [address], [place] tel:[phone] [facility] headache1 (chief complaint) back pain1 (chief complaint) anxiety1 (chief complaint) tobacco1 (chief complaint) Abnormal weight lossHeadacheLow back painTobacco use 6 [address]. [address], [address], [place], [place], [address] , [place]. tel:[phone] Referring Provider: Subha Ramirez [address], [place], [place], [address]. tel:[phone] OFFICE/OUTPA TIENT VISIT, [facility], [address], [place], [place], [address], [place] tel:[phone] [facility] back pian1 (chief complaint) headache1 (chief complaint) anxiety1 (chief complaint) HeadacheLow back painVitamin D deficiency, unspecifiedGenerali zed anxiety disorder [address]. [address], [address], [place], [place], [address] , [place]. tel:[phone] Referring Provider: Subha Ramirez [address], [place], [place], [address]. tel:[phone] OFFICE/OUTPA TIENT VISIT, EST [facility], [address], [place], [place], [address], [place] tel:[phone] [facility] headache1 (chief complaint) back pain1 (chief complaint) anxiety1 (chief complaint) weight loss1 (chief complaint) Abnormal weight lossChronic migraine w/o aura, not intractable, w/o status migrainosusOther spondylosis, lumbar regionGeneralized anxiety disorder [address]. [address], [address], [place], [place], [address] , [place]. [phone] Referring Provider: Subha Ramirez [address], [place], [place], [address]. tel:[phone] OFFICE/OUTPA TIENT VISIT, EST [facility], [address], [place], [place], [address], [place] tel:[phone] [facility] anxiety (chief complaint) LBP (chief complaint) headache (chief complaint) LumbagoGeneralized anxiety disorderHeadache 5 [address]. [address], [place], [place], [address] , [place]. [phone] Referring Provider: Subha Ramirez [address], [place], [place], [address]. tel:[phone] PREV VISIT, EST, AGE 18-39 [facility], [address], [place], [place], [address], [place] tel:[phone] [facility] Medicine PHysical (chief complaint) ROUTINE MEDICAL EXAM 5 Miguel [address]. [address], [place], [place], [address] , [place]. [phone] Referring Provider: Subha Ramirez [address], [place], [place], [address]. tel:[phone] OFFICE/OUTPA TIENT VISIT, [facility], [address], [place], [address], [place] tel:[phone] [facility] chronic pain (chief complaint) headcashe (chief complaint) anxiety (chief complaint) LumbagoGeneralized anxiety disorderHeadacheClo sed fibular shaft fx 5 [address]. [address], [place], [place], [address] , [place]. tel:[phone] Referring Provider: Subha Ramirez [address], [place], [place], [address]. tel:[phone] OFFICE/OUTPA TIENT VISIT, [facility], [address], [place], [place], [address], [place] tel:[phone] [facility] fibular fx (chief complaint) back pain (chief complaint) anxiety (chief complaint) headache (chief complaint) LumbagoClosed fibular shaft fxGeneralized anxiety disorderHeadache 5 [address]. [address], [place], [place], [address] , [place]. tel:[phone] Referring Provider: Subha Ramirez [address], [place], [place], [address]. tel:[phone] OFFICE/OUTPA TIENT VISIT, [facility], [address], [place], [address], [place] tel:[phone] [facility] back pain (chief complaint) headache (chief complaint) anxiety (chief complaint) Dietary surveillance and counselingGeneraliz ed anxiety disorderHeadacheLum bago 5 [address]. [address], [place], [place], [address] , [place]. tel:[phone] Referring Provider: Subha Ramirez [address], [place], [place], [address]. tel:[phone] OFFICE/OUTPA TIENT VISIT, [facility], [address], [place], [place], [address], [place] tel:[phone] [facility] back pain (chief complaint) anxiety (chief complaint) HTN (chief complaint) Dietary surveillance and counselingLumbagoGe neralized anxiety disorderHypertensio n, Unspecified [address]. [address], [address], [place], [place], [address] , [place]. tel:[phone] Referring Provider: Moshe Rivera, [address], [place], [place], [address]. tel:[phone] OFFICE/OUTPA TIENT VISIT, [facility], [address], [place], [place], [address], [place] tel:[phone] [facility] back pain (chief complaint) headache (chief complaint) Sick (chief complaint) anxiety (chief complaint) Dietary surveillance and counselingLumbagoGe neralized anxiety disorderAcute upper respiratory infections of other multiple sitesHeadache 4 [address]. [address], [address], [place], [place], [address] , [place]. [phone] Referring Provider: Moshe Rivera, [address], [place], [place], [address]. tel:[phone] OFFICE/OUTPA TIENT VISIT, [facility], [address], [place], [place], [address], [place] tel:[phone] [facility] back pain (chief complaint) anxiety (chief complaint) headache (chief complaint) Dietary surveillance and counselingLumbagoGe neralized anxiety disorderHeadache 4 [address]. [address], [address], [place], [place], [address] , [place]. [phone] Referring Provider: Moshe Rivera, [address], [place], [place], [address]. tel:[phone] OFFICE/OUTPA TIENT VISIT, [facility], [address], [place], [place], [address], [place] tel:[phone] [facility] back pain (chief complaint) anxiety (chief complaint) tobacco (chief complaint) headache (chief complaint) LumbagoGeneralized anxiety disorderHeadacheDie tary surveillance and counselingTobacco Abuse 4 [address]. [address], [place], [place], [address] , [place]. tel:[phone] Referring Provider: Subha Ramirez [address], [place], [place], [address]. tel:[phone] OFFICE/OUTPA TIENT VISIT, [facility], [address], [place], [place], [address], [place] tel:[phone] [facility] headache (chief complaint) back pain (chief complaint) anxiety (chief complaint) bronchtis (chief complaint) Dietary surveillance and counselingLumbagoHe adacheGeneralized anxiety disorderBronchitis, Acute 4 [address]. [address], [place], [place], [address] , [place]. tel:[phone] Referring Provider: Subha Ramirez [address], [place], [place], [address]. tel:[phone] OFFICE/OUTPA TIENT VISIT, [facility], [address], [place], [place], [address], [place] tel:[phone] [facility] headache (chief complaint) anxiety (chief complaint) back pain (chief complaint) Dietary surveillance and counselingHeadacheG eneralized anxiety disorderLumbago 4 [address]. [address], [place], [place], [address] , [place]. tel:[phone] Referring Provider: Subha Ramirez [address], [place], [place], [address]. tel:[phone] PREV VISIT, NEW, AGE 18-39 [facility], [address], [place], [place], [address], [place] tel:[phone] [facility] Medicine Physical (chief complaint) Dietary surveillance and counselingRoutine Medical ExamRoutine Medical Exam 4 [address]. [address], [place], [place], [address] , [place]. tel:[phone] Family History Family Member Type Diagnosis Age At Onset Father Problem (finding) Alcoholism Mother Problem (finding) Back Pain Brother Problem (finding) Back Pain Payers Payer name Insurance type Covered libertarian ID Authoriza tion(s) No Information Social History [...] ordered Referral Referred To: Inga Villegas [address] [place], [phone] Ordered: Referrals: Inga Villegas. Evaluate and treat ordered Referral Ordered: Jerel Bass (related to Abnormal weight loss) ordered Referral Referred To: Jerel Bass [facility] [place], [phone] Ordered: Referrals: Jerel Bass. Evaluate and treat [...] chronic m igraine headache. 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
[2025-04-14] MEDS: PENICILLIN G BENZATHINE 1,200,000 UNITS/2 ML SYRINGE 2400000 UNITS IM (03:29)
[2025-04-14] MEDS: CIPROFLOXACIN 500 MG TAB PO (03:29)
== END 2025-04-14 03:53 | disposition home or self-care (01) ==
PROVIDERS: Emergency Provider Emergency Medicine; PCP Emergency Medicine
DX: A53.9 Syphilis, unspecified (principal); N30.00 Acute cystitis without hematuria; F17.210 Nicotine dependence, cigarettes, uncomplicated
CPT/HCPCS: 96372; 99283; A9270; J0561